=== PATIENT | female | born 1970 | race Caucasian/White ===

== ENCOUNTER 2017-10-11 15:53 | Inpatient (IN) | END 2017-10-17 21:45 | DRG 313 ==

== ENCOUNTER → 2018-11-28 | Emergency (ER) | payer MEDICARE, OTHER ==
[~2018-11-28] VITALS: Ht 160 cm; Wt 75.0 kg
[~2018-11-28] MED LIST: ACET325S GTB; ASC500 GTB; MULTI GTB; NITR0.4T39 SL; OMEP20CA16 PO; PROT946L GTB; [UNRECOGNIZED DRUG - CODE] BOTH EYES
[2018-11-28 08:26] VITALS: BP 117/84; PULSE 73; RESP 16; Ht 160 cm; Wt 75.0 kg
--- NOTE | 2018-11-28 08:38 | ERD ---
ER Documentation Chief Complaint Chief Complaint Tube replacement HPI 48-year-old female referred from her care facility for replacement of a G-tube which was apparently dislodged accidentally earlier today. Patient is nonverbal and provides no further symptoms. No further symptoms were available in the transfer paperwork. ROS All systems reviewed and are negative except as per history of present illness. Medications Home Meds Reported Medications Ascorbic Acid (Vitamin C) 500 Mg Tab, 500 MG GTB DAILY, TAB 10/07/17 Acetaminophen* (Acetaminophen* Susp) 325 Mg/10.15 Ml Solution, 650 MG GTB Q4H PRN for PAIN OR TEMP ABOVE 38C, ML 10/07/17 Protein Supplement (Promod) 946 Ml Liquid, 30 ML GTB DAILY 10/07/17 Omeprazole* (Omeprazole*) 20 Mg Capsule.dr, 20 MG PO AC BREAKFAST, #30 CAP 10/07/17 Nitroglycerin* (Nitrostat*) 0.4 Mg Tab.subl, 0.4 MG SL Q5MIN PRN for CHEST PAIN, BOTTLE 10/07/17 Balanced Salt Soln (Bss) 500 Ml Irrig.soln, 1 DROP BOTH EYES BID 10/07/17 Multivitamins* (Theragran*) 1 Tab Tab, 1 TAB GTB DAILY, TAB 10/07/17 Allergies Allergies: Coded Allergies: No Known Allergy (Unverified , 10/07/17) PMhx/Soc History of Surgery: No Anesthesia Reaction: No Hx Neurological Disorder: No Hx Respiratory Disorders: No Hx Cardiac Disorders: No Hx Psychiatric Problems: No Hx Miscellaneous Medical Probl: No Hx Alcohol Use: No Hx Substance Use: No Hx Tobacco Use: No Physical Exam Physical Exam General: Frail, bed bound, ill appearing HEENT: Mucous membranes dry, sclera nonicteric Neck: No inflammatory changes noted. No JVD. Cardiovascular: Regular rate and rhythm, no murmurs rubs or gallops. Lungs: Transmission of upper airway sounds. Abdomen: Soft with G-tube stoma appreciated. Nontender to palpation. Bowel sounds noted. : Diaper in place and incontinent. Extremities: Atrophic but atraumatic with no edema, cyanosis or clubbing. Neurologic: Baseline organic brain syndrome noted. Gag reflex week. Motor strength diminished in all 4 extremities but otherwise nonfocal. Skin: Skin breakdown noted per nursing note. Procedures/MDM Patient was taken to a room, seen and examined Procedure: G-tube replacement The gastrotomy tube ostomy was cleaned. Using clean procedure, a 16 [place] gastrotomy tube was replaced without obvious trauma. Patient tolerated procedure without difficulty. Medical decision makin-year-old female presents for replacement of a G-tube which was done without complications. Post replacement, the tube was able to be suctioned with gastric contents. This confirmed placement and patient was discharged back with no other evidence of other emergent medical condition by history. Departure Diagnosis: Primary Impression: Encounter for feeding tube placement Condition: Stable Patient Instructions: Feeding Tube Replacement Referrals: SPIKE BANDA MD (PCP) TRAVIS MADRIGAL Nov 28, 2018 08:38
== END | disposition home or self-care (01) ==
LOC: E/R 08:22
DX: K94.23 Gastrostomy malfunction (principal)

== ENCOUNTER 2019-01-02 09:55 | Inpatient (IN) | payer MEDICARE, OTHER ==
[~2019-01-02] VITALS: Ht 160 cm; Wt 63.7 kg
[~2019-01-02 09:55] MED LIST changes: +ACET325T33 PO; +ASPI-903 PO; +DOCU-144 PO; +FAMO20TA18 PO; +MULT-105 PO; +MURO1282 BOTH EYES; +NITR0.4T32 SL; +OLOP5DRO12 BOTH EYES; +PROT946L PO; +TETR15DR63 BOTH EYES
--- NOTE | 2019-01-02 10:54 | ERD ---
ER Documentation Chief Complaint Chief Complaint BIB RA FOR EVAL OF VB THIS AM. PMD VERONIKA HPI 48-year-old woman who is bedbound and quadriplegic status post stroke brought in by EMS from shelter for vaginal bleeding. Family member who is at the bedside states she has had bleeding for about 2 to 3 days. She has had no feve rs or chills, no rectal bleeding, no vomiting or diarrhea. HPI was limited but supplemented by speaking to family member, EMS, reviewing past medical history shelter records. ROS All systems reviewed and are negative except as per history of present illness. Medications Home Meds Reported Medications Acetaminophen* (Tylenol*) 325 Mg Tablet, 650 MG PO Q6H PRN for PAIN LEVEL 1- 10/10, TAB AND FEVER>100.4F 01/02/19 Tetrahydrozoline Hcl* (Visine*) 0.05% - 15 Ml Drops, 1 DROP BOTH EYES Q6H PRN for RED EYES, #1 EA 01/02/19 Protein Supplement (Promod) 946 Ml Liquid, 30 ML PO DAILY 01/02/19 Olopatadine* (Patanol* Ophth) 0.1% - 5 Ml Drops, 1 DROP BOTH EYES TID, EA 01/02/19 Nitroglycerin* (Nitroglycerin* SL) 0.4 Mg Tab.subl, 0.4 MG SL Q5MIN PRN for CHEST PAIN, BOTTLE 01/02/19 Sodium Chloride* (Betty-128*) 2%-15ml Dropper Opht, 1 DROP BOTH EYES QHS, EA 01/02/19 Multivitamin with Minerals (Multivitamins with Minerals) 1 Each Tablet, 1 EACH PO DAILY, TAB 01/02/19 Famotidine* (Famotidine*) 20 Mg Tablet, 20 MG PO DAILY, #30 TAB 01/02/19 Docusate Sodium* (Colace*) 100 Mg Capsule, 100 MG PO BID, #60 CAP 01/02/19 Aspirin* (Aspirin* Chew) 81 Mg Tab.chew, 81 MG PO DAILY, TAB.CHEW 01/02/19 Discontinued Reported Medications Ascorbic Acid (Vitamin C) 500 Mg Tab, 500 MG GTB DAILY, TAB 10/07/17 Acetaminophen* (Acetaminophen* Susp) 325 Mg/10.15 Ml Solution, 650 MG GTB Q4H PRN for PAIN OR TEMP ABOVE 38C, ML 10/07/17 Protein Supplement (Promod) 946 Ml Liquid, 30 ML GTB DAILY 10/07/17 Omeprazole* (Omeprazole*) 20 Mg Capsule.dr, 20 MG PO AC BREAKFAST, #30 CAP 10/07/17 Nitroglycerin* (Nitrostat*) 0.4 Mg Tab.subl, 0.4 MG SL Q5MIN PRN for CHEST PAIN, BOTTLE 10/07/17 Balanced Salt Soln (Bss) 500 Ml Irrig.soln, 1 DROP BOTH EYES BID 10/07/17 Multivitamins* (Theragran*) 1 Tab Tab, 1 TAB GTB DAILY, TAB 10/07/17 Allergies Allergies: Coded Allergies: No Known Allergy (Unverified , 01/02/19) PMhx/Soc Stroke, dysphagia with gastrostomy tube, bedbound, quadriplegic History of Surgery: Yes (gastrostomy ) Anesthesia Reaction: No Hx Neurological Disorder: Yes (EPILEPSY) Hx Respiratory Disorders: No Hx Cardiac Disorders: Yes (htn, HYPERLIPIDEMIA) Hx Psychiatric Problems: No Hx Miscellaneous Medical Probl: Yes (GERD) Hx Alcohol Use: No Hx Substance Use: No Hx Tobacco Use: No FmHx Family History: No diabetes Physical Exam Vitals Vital Signs Date Temp Pulse Resp B/P (MAP) Pulse Ox O2 O2 Flow FiO2 Time Delivery Rate 01/02/19 97.7 61 18 125/72 98 Room Air 12:11 (89) 01/02/19 98.1 67 16 134/70 98 10:07 (91) Physical Exam General: Frail, bed bound, afebrile HEENT: Mucous membranes dry, sclera nonicteric Neck: No inflammatory changes noted. No JVD. Cardiovascular: Regular rate and rhythm, no murmurs rubs or gallops. Lungs: Transmission of upper airway sounds. Abdomen: Soft with G-tube in place. Nontender to palpation. Bowel sounds noted. : Diaper in place and incontinent. Extremities: Atrophic but atraumatic with no edema, cyanosis or clubbing. Neurologic: Baseline organic brain syndrome. Gag reflex week. Motor strength diminished in all 4 extremities but otherwise nonfocal. Skin: Skin breakdown noted per nursing note. Result Diagram: 01/02/19 1124 Results 24 hrs Laboratory Tests Test 01/02/19 11:24 White Blood Count 4.4 10^3/ul Red Blood Count 4.66 10^6/ul Hemoglobin 14.3 g/dl Hematocrit 42.7 % Mean Corpuscular Volume 91.6 fl Mean Corpuscular Hemoglobin 30.7 pg Mean Corpuscular Hemoglobin Concent 33.5 g/dl Red Cell Distribution Width 13.0 % Platelet Count 198 10^3/UL Mean Platelet Volume 10.1 fl Immature Granulocytes % 0.000 % Neutrophils % 48.1 % Lymphocytes % 39.9 % Monocytes % 8.6 % Eosinophils % 2.9 % Basophils % 0.5 % Nucleated Red Blood Cells % 0.0 /100WBC Immature Granulocytes # 0.000 10^3/ul Neutrophils # 2.1 10^3/ul Lymphocytes # 1.8 10^3/ul Monocytes # 0.4 10^3/ul Eosinophils # 0.1 10^3/ul Basophils # 0.0 10^3/ul Nucleated Red Blood Cells # 0.0 10^3/ul Prothrombin Time 12.9 Sec Prothrombin Time Ratio 1.0 INR International Normalized Ratio 0.96 Activated Partial Thromboplast Time 27.0 Sec Urine Color YELLOW Urine Clarity SLIGHTLY CLOUDY Urine pH 7.0 Urine Specific [place] 1.014 Urine Ketones NEGATIVE mg/dL Urine Nitrite POSITIVE mg/dL Urine Bilirubin NEGATIVE mg/dL Urine Urobilinogen 2+ mg/dL Urine Leukocyte Esterase NEGATIVE Radha/ul Urine Microscopic RBC 2 /HPF Urine Microscopic WBC 3 /HPF Urine Bacteria FEW /HPF Urine Mucus FEW /HPF Urine Hemoglobin NEGATIVE mg/dL Urine Glucose NEGATIVE mg/dL Urine Total Protein NEGATIVE mg/dl Current Medications Medications Dose Sig/Radha Start Time Status Last (Trade) Ordered Route PRN Stop Time Admin Dose Reason Admin Sodium 500 ml @ Q1H STAT 01/02/19 DC 01/02/19 Chloride 500 mls/hr IV 11:00 12:08 01/02/19 11:59 Cefepime HCl 50 ml @ ONCE ONCE 01/02/19 01/02/19 100 mls/hr IVPB 12:30 12:10 01/02/19 12:59 Procedures/MDM IV line was established patient was placed on shelter monitor rhythm strip revealed a sinus rhythm at about 80 bpm with upright P and T waves. Patient was afebrile I administered 1 L normal saline IV. Urinalysis revealed nitrites and microscopic blood with elevated urine WBCs, administered cefepime 1 g IV x1. CBC was unremarkable. Electrolytes pending. Pelvic nonobstetric ultrasound has been ordered results are pending I will follow-up I spoke to the patient's PMD regarding her presentation and symptomatology who recommended inpatient management with ANIMAL ASSISTANT consultation. Departure Diagnosis: Primary Impression: Vaginal bleeding Additional Impressions: Functional quadriplegia Acute dehydration Condition: JULIETTE Arizmendi MD January 02, 2019 10:54
[2019-01-02] MEDS ORDERED: SOD CHLORIDE 0.9% 500 ML IV STA (11:00)
[2019-01-02] MEDS ORDERED: CEFEPIME 1GM/50 ML (PMX) 50 ML IVPB ONE (12:30)
[2019-01-02] MEDS ORDERED: morphine 2 MG INJ IV STA (15:22)
[2019-01-02] MEDS ORDERED: ONDANSETRON 4 MG INJ IV STA (15:22)
--- NOTE | 2019-01-02 16:49 | HP ---
Date/Time of Note Date/Time of Note DATE: 01/02/19 TIME: 16:36 Assessment/Plan VTE Prophylaxis SCD applied (from Nsg): Yes Pharmacological prophylaxis: NA/contraindicated Pharm contraindication: bleeding Lines/Catheters IV Catheter Type (from Nrsg): Saline Lock Urinary Cath still in place: Yes Reason Cath still needed: urinary retention Assessment/Plan Hospital Course -Vaginal bleeding, will obtain vaginal ultrasound, continue to monitor hemoglobin and hematocrit, SYNTHETIC DEPARTMENT SUPERVISOR eval. 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 -Dysphagia with G-tube -Bedbound status Further recommendations based on clinical course. Plan of care discussed with Dr. Dominique. Result Diagram: 01/02/19 1124 01/02/19 1245 Results 24hrs Laboratory Tests Test 01/02/19 11:24 01/02/19 12:45 White Blood Count 4.4 L Red Blood Count 4.66 Hemoglobin 14.3 Hematocrit 42.7 Mean Corpuscular Volume 91.6 Mean Corpuscular Hemoglobin 30.7 Mean Corpuscular Hemoglobin Concent 33.5 Red Cell Distribution Width 13.0 Platelet Count 198 Mean Platelet Volume 10.1 Immature Granulocytes % 0.000 L Neutrophils % 48.1 Lymphocytes % 39.9 Monocytes % 8.6 Eosinophils % 2.9 Basophils % 0.5 Nucleated Red Blood Cells % 0.0 Immature Granulocytes # 0.000 Neutrophils # 2.1 Lymphocytes # 1.8 Monocytes # 0.4 Eosinophils # 0.1 Basophils # 0.0 Nucleated Red Blood Cells # 0.0 Prothrombin Time 12.9 Prothrombin Time Ratio 1.0 INR International Normalized Ratio 0.96 Activated Partial Thromboplast Time 27.0 Urine Color YELLOW Urine Clarity SLIGHTLY CLOUDY A Urine pH 7.0 Urine Specific [place] 1.014 Urine Ketones NEGATIVE Urine Nitrite POSITIVE A Urine Bilirubin NEGATIVE Urine Urobilinogen 2+ H Urine Leukocyte Esterase NEGATIVE Urine Microscopic RBC 2 Urine Microscopic WBC 3 Urine Bacteria FEW A Urine Mucus FEW A Urine Hemoglobin NEGATIVE Urine Glucose NEGATIVE Urine Total Protein NEGATIVE Sodium Level 141 Potassium Level 4.2 Chloride Level 109 Carbon Dioxide Level 25 Anion Gap 7 Blood Urea Nitrogen 9 Creatinine 0.50 Est Glomerular Filtrat Rate mL/min > 60 Glucose Level 98 Calcium Level 9.3 Total Bilirubin 0.5 Direct Bilirubin 0.00 Indirect Bilirubin 0.5 Aspartate Amino Transf (AST/SGOT) 32 Alanine Aminotransferase (ALT/SGPT) 35 Alkaline Phosphatase 102 Total Protein 7.2 Albumin 3.8 Globulin 3.40 H Albumin/Globulin Ratio 1.11 Lipase 40 HPI/ROS Admit Date/Time Admit Date/Time Hx of Present Illness The patient is a 48-year-old female with history of intracerebral hemorrhage with aneurysmal rupture 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 Patient is a bedbound and being fed via G-tube. Patient was sent from long term facility for vaginal bleeding. Patient is unable to provide any history and most of the history was obtained from medical records and talking to patient's daughter at the bedside. According to patient's daughter patient stop having period 2 years ago. Patient will undergo vaginal ultrasound and evaluation by SYNTHETIC DEPARTMENT SUPERVISOR. No fever nausea vomiting diarrhea were reported. Patient complains of the right eye pain. PMH/Family/Social Past Medical History Medical History: hypertension, other ( history of lupus) Coded Allergies: No Known Allergy (Unverified , 01/02/19) Past Surgical History Past Surgical Hx: other (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) Family History Significant Family History: no pertinent family hx Social History Patient is a resident of a long term facility, currently do not smoke drink or use any drugs Alcohol Use: none Drug Use: other (History of amphetamine use in the past) Exam/Review of Systems Vital Signs Vitals Vital Signs Date Temp Pulse Resp B/P (MAP) Pulse Ox O2 O2 Flow FiO2 Time Delivery Rate 01/02/19 97.9 61 14 122/69 96 Room Air 16:13 (86) Exam Constitutional: alert, non-verbal Head: normocephalic Eyes: PERRL Neck: supple Respiratory: clear to auscultation Cardiovascular: regular rate and rhythm Gastrointestinal: soft, other (G-tube) Extremities: normal pulses, other (Contracted bilateral lower extremities) Neurological: other (Awake, alert, contracted bilateral lower extremities, right-sided weakness) Skin: KELSEY Kirkpatrick January 02, 2019 16:46
[2019-01-02 17:10] VITALS: Ht 160 cm; Wt 63.7 kg
[2019-01-02 17:20] VITALS: BP 131/68; PULSE 88; RESP 19
[2019-01-02] MEDS ORDERED: ONDANSETRON 4 MG INJ IV PRN (17:30)
[2019-01-02] MEDS ORDERED: ACETAMINOPHEN 325 MG TAB PO PRN (17:30)
[2019-01-02] MEDS ORDERED: HYDROCODONE/APAP (5/325) TAB PO PRN (17:30)
[2019-01-02] MEDS ORDERED: DOCUSATE SODIUM 100 MG CAP PO PRN (17:30)
[2019-01-02] MEDS ORDERED: MAGNESIUM HYDROXIDE 30ML CUP PO PRN (17:30)
[2019-01-02 19:20] VITALS: BP 102/62; PULSE 50; RESP 16
[2019-01-02] MEDS: DEXTROSE 5%-0.45% NACL 1,000 ML IV SCH (20:05)
[2019-01-02] MEDS: SODIUM CHLORIDE 5% 15ML OPH BOTH EYES SCH (21:00)
[2019-01-02] MEDS ORDERED: SODIUM CHLORIDE 2% OPH 15 ML BTL BOTH EYES SCH (21:00)
[2019-01-02] MEDS: DOCUSATE SODIUM 100 MG CAP PO SCH (21:00)
[2019-01-03 02:20] VITALS: BP 130/71; PULSE 86; RESP 18
[2019-01-03 07:38] VITALS: BP 106/68; PULSE 63; RESP 18
[2019-01-03] MEDS: FAMOTIDINE 20 MG TAB PO SCH (09:00)
[2019-01-03] MEDS: DOCUSATE SODIUM 100 MG CAP PO SCH ×2 (09:00→21:49)
[2019-01-03] MEDS: DEXTROSE 5%-0.45% NACL 1,000 ML IV SCH ×2 (09:27→22:10)
[2019-01-03] MEDS: TETRAHYDROZOLINE 0.05% 15 ML OPH BOTH EYES PRN ×2 (09:29→16:14)
[2019-01-03 14:25] VITALS: BP 108/66; PULSE 76; RESP 18
--- NOTE | 2019-01-03 15:22 | PN ---
Date/Time of Note Date/Time of Note DATE: 01/03/19 TIME: 15:10 Assessment/Plan VTE Prophylaxis Risk score (from Ns)>0 risk: 2 SCD applied (from Ns): Yes Pharmacological prophylaxis: NA/contraindicated Pharm contraindication: bleeding Lines/Catheters [facility] Peripheral IV Urinary Cath still in place: Yes Reason Cath still needed: urinary retention Assessment/Plan Hospital Course Patient continues to have small amount of vaginal bleeding, status post evaluation by speech, start pured diet, CT of the abdomen and pelvis noted. Assessment/Plan -Vaginal bleeding, Dr Nath is asked to see pt in BIOPROCESS DEVELOPMENT ENGINEER eval. monitor H&H. -Severe constipation with concern for stroke or pleural colitis and gallbladder distention with dilated common bile duct per CT of the abdomen and pelvis. Start patient on bowel regimen. Dr. Devi is asked to see patient in gastroenterology consultation. -Gram-negative rods UTI, start Rocephin. 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 -Dysphagia with G-tube -Bedbound status Further recommendations based on clinical course. Plan of care discussed with Dr. Dominique. Result Diagram: 01/03/19 0434 01/03/19 0434 Results 24hrs Laboratory Tests Test 01/03/19 04:34 White Blood Count 4.4 L Red Blood Count 4.36 Hemoglobin 13.2 Hematocrit 39.4 Mean Corpuscular Volume 90.4 Mean Corpuscular Hemoglobin 30.3 Mean Corpuscular Hemoglobin Concent 33.5 Red Cell Distribution Width 12.9 Platelet Count 190 Mean Platelet Volume 10.2 Immature Granulocytes % 0.200 Neutrophils % 49.7 Lymphocytes % 37.4 Monocytes % 9.9 Eosinophils % 2.3 Basophils % 0.5 Nucleated Red Blood Cells % 0.0 Immature Granulocytes # 0.010 Neutrophils # 2.2 Lymphocytes # 1.6 Monocytes # 0.4 Eosinophils # 0.1 Basophils # 0.0 Nucleated Red Blood Cells # 0.0 Sodium Level 141 Potassium Level 4.3 Chloride Level 111 H Carbon Dioxide Level 25 Anion Gap 5 Blood Urea Nitrogen 6 L Creatinine 0.54 Est Glomerular Filtrat Rate mL/min > 60 Glucose Level 116 Calcium Level 8.8 Magnesium Level 2.0 Exam/Review of Systems Exam Vitals Vital Signs Date Temp Pulse Resp B/P (MAP) Pulse Ox O2 O2 Flow FiO2 Time Delivery Rate 01/03/19 98.2 63 18 106/68 97 Room Air 07:38 (81) Intake and Output 01/02/19 01/02/19 01/03/19 1414:59 22:59 06:59 IntakeIntake Total 550 ml 650 ml OutputOutput Total 1000 ml BalanceBalance 550 ml -350 ml Exam Constitutional: alert, non-verbal Respiratory: clear to auscultation Cardiovascular: regular rate and rhythm Gastrointestinal: soft, other (G-tube) Extremities: normal pulses, other (Contracted bilateral lower extremities) Neurological: other (Awake, alert, contracted bilateral lower extremities, right-sided weakness) Skin: nl turgor Results Results 24hrs Laboratory Tests Test 01/03/19 04:34 White Blood Count 4.4 L Red Blood Count 4.36 Hemoglobin 13.2 Hematocrit 39.4 Mean Corpuscular Volume 90.4 Mean Corpuscular Hemoglobin 30.3 Mean Corpuscular Hemoglobin Concent 33.5 Red Cell Distribution Width 12.9 Platelet Count 190 Mean Platelet Volume 10.2 Immature Granulocytes % 0.200 Neutrophils % 49.7 Lymphocytes % 37.4 Monocytes % 9.9 Eosinophils % 2.3 Basophils % 0.5 Nucleated Red Blood Cells % 0.0 Immature Granulocytes # 0.010 Neutrophils # 2.2 Lymphocytes # 1.6 Monocytes # 0.4 Eosinophils # 0.1 Basophils # 0.0 Nucleated Red Blood Cells # 0.0 Sodium Level 141 Potassium Level 4.3 Chloride Level 111 H Carbon Dioxide Level 25 Anion Gap 5 Blood Urea Nitrogen 6 L Creatinine 0.54 Est Glomerular Filtrat Rate mL/min > 60 Glucose Level 116 Calcium Level 8.8 Magnesium Level 2.0 Medications Medication Current Medications Acetaminophen (Tylenol Tab) 650 mg Q6H PRN PO PAIN LEVEL 1-10/10; Start 01/02/19 at 17:30 Docusate Sodium (Colace) 100 mg BID PO ; Start 01/02/19 at 21:00 Famotidine (Pepcid) 20 mg DAILY PO ; Start 01/03/19 at 09:00 Tetrahydrozoline HCl (Geneyes Oph) 1 drop Q6H PRN BOTH EYES RED EYES Last administered on 01/03/19at 09:29; Admin Dose 1 DROP; Start 01/02/19 at 17:30 Ondansetron HCl (Zofran Inj) 4 mg Q6H PRN IV NAUSEA/VOMITING; Start 01/02/19 at 17:30 Acetaminophen/ Hydrocodone Bitart ([place] (5/325)) 1 tab Q6H PRN PO .MOD PAIN 4- 6; Start 01/02/19 at 17:30 Docusate Sodium (Colace) 100 mg Q12H PRN PO .CONSTIPATION; Start 01/02/19 at 17:30 Magnesium Hydroxide (Milk Of Mag) 30 ml DAILY PRN PO .CONSTIPATION; Start 01/02/19 at 17:30 Sodium Chloride (Betty-128 5%) 1 drop QHS BOTH EYES ; Start 01/02/19 at 21:00 Dextrose/Sodium Chloride 1,000 ml @ 75 mls/hr [id number] IV Last administered on 01/03/19at 09:27; Admin Dose 75 MLS/HR; Start 01/02/19 at 19:30 KELSEY PROCTOR January 03, 2019 15:21
[2019-01-03] MEDS ORDERED: CEFTRIAXONE 1 GM/50 ML (PMX) 50 ML IVPB SCH (15:30)
[2019-01-03] MEDS ORDERED: MAGNESIUM CITRATE 300 ML BTL GTB ONE (18:30)
[2019-01-03 20:27] VITALS: BP 125/69; PULSE 77; RESP 20
[2019-01-03] MEDS: SODIUM CHLORIDE 5% 15ML OPH BOTH EYES SCH (21:01)
--- NOTE | 2019-01-03 21:22 | CONS ---
DATE OF ADMISSION: 01/02/2019 DATE OF CONSULTATION: From Dr. Montrell Devi to Dr. Spike Banda. HISTORY OF PRESENT ILLNESS: A 48-year-old female who is a quadriplegic, bedbound, was brought to the emergency room for vaginal bleeding. This has been going on for the last 2 to 3 days, not much info rmation could be obtained from the patient because of her mental status. All the information gathere d by reviewing the electronic medical record. REVIEW OF SYSTEMS: Nothing additional than what has been described in the history of present illness . HOME MEDICATIONS: Reviewed. The patient is on: 1. Eyedrops. 2. Famotidine 3. Colace. 4. Nitrostat. ALLERGIES: NONE. PAST MEDICAL HISTORY: G-tube, history of epilepsy, hyperlipidemia and GERD. The patient had a histo ry of stroke. PHYSICAL EXAMINATION: GENERAL: Awake, alert and trying to remove IV line. CARDIOVASCULAR: No murmur, gallop or click. ABDOMEN: Benign. G-tube is in place. LUNGS: Clear. EXTREMITIES: Atrophic. No edema. CENTRAL NERVOUS SYSTEM: Neurologically confused. Moves all the extremities. LABORATORY DATA: LFTs all within normal limits. BNP is normal. CBC is normal and stable. INR was within normal limits. IMAGING STUDY: CAT scan of the abdomen and pelvis shows a leiomyomatous changes in the uterus. Gall bladder was distended and bile duct was dilated up to 1 cm. There was a fecal impaction, probably wi th stercoral ulcer. IMPRESSION: 1. Dilated gallbladder and bile duct with normal LFT, rule out bile duct stone. Rule out biliary st ricture, rule out ampullary pathology. 2. Fecal impaction with probable stercoral ulcer. 3. Vaginal bleeding from leiomyomatous uterus. 4. Quadriplegia. 5. Cerebrovascular accident. 6. Hyperlipidemia. 7. Dysphagia, status post G-tube placement. PLAN: At this point is to get MRCP to evaluate the biliary system properly. If MRCP is negative for any stone, then we will manage conservatively; however, if it is positive for any biliary stricture or the stone, then the patient will need ERCP. Dictated By: MONTRELL COHEN/CLARE Conf#: [id number] DID#: [id number] CC: SPIKE BANDA MD; MONTRELL DEVI MD;*EndCC*
[2019-01-04 01:41] VITALS: BP 128/60; PULSE 60; RESP 18
[2019-01-04] MEDS: DEXTROSE 5%-0.45% NACL 1,000 ML IV SCH ×3 (06:26→20:46)
--- NOTE | 2019-01-04 08:57 | CONS ---
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 patient is currently not having vaginal bleeding according to nurse who is taking care of this patient. u/s endovaginal revealed no adequate view in endometrium, no ovaries, small uterus which is heterogenous. blodd count 13.9/41.4 at present no recommandation except f/u u/s and possible endometrial biopsy when her physical condition improves vaginal spotting Subjective hx not possible: pt non-verbal Constitutional: no complaints, improved, disoriented Eyes: no complaints ENT: no complaints Respiratory: no complaints Cardiovascular: no complaints Gastrointestinal: no complaints Genitourinary: no complaints Musculoskeletal: no complaints Skin: no complaints Neurologic: no complaints Endocrine: no complaints Lymphatic: no complaints Psychological: no complaints, nl mood/affect Immunologic: no complaints Past Medical History Medical History: hypertension, other ( history of lupus) Home Meds Reported Medications Acetaminophen* (Tylenol*) 325 Mg Tablet, 650 MG PO Q6H PRN for PAIN LEVEL 1- 10/10, TAB AND FEVER>100.4F 01/02/19 Tetrahydrozoline Hcl* (Visine*) 0.05% - 15 Ml Drops, 1 DROP BOTH EYES Q6H PRN for RED EYES, #1 EA 01/02/19 Protein Supplement (Promod) 946 Ml Liquid, 30 ML PO DAILY 01/02/19 Olopatadine* (Patanol* Ophth) 0.1% - 5 Ml Drops, 1 DROP BOTH EYES TID, EA 01/02/19 Nitroglycerin* (Nitroglycerin* SL) 0.4 Mg Tab.subl, 0.4 MG SL Q5MIN PRN for CHEST PAIN, BOTTLE 01/02/19 Sodium Chloride* (Betty-128*) 2%-15ml Dropper Opht, 1 DROP BOTH EYES QHS, EA 01/02/19 Multivitamin with Minerals (Multivitamins with Minerals) 1 Each Tablet, 1 EACH PO DAILY, TAB 01/02/19 Famotidine* (Famotidine*) 20 Mg Tablet, 20 MG PO DAILY, #30 TAB 01/02/19 Docusate Sodium* (Colace*) 100 Mg Capsule, 100 MG PO BID, #60 CAP 01/02/19 Aspirin* (Aspirin* Chew) 81 Mg Tab.chew, 81 MG PO DAILY, TAB.CHEW 01/02/19 Discontinued Reported Medications Ascorbic Acid (Vitamin C) 500 Mg Tab, 500 MG GTB DAILY, TAB 10/07/17 Acetaminophen* (Acetaminophen* Susp) 325 Mg/10.15 Ml Solution, 650 MG GTB Q4H PRN for PAIN OR TEMP ABOVE 38C, ML 10/07/17 Protein Supplement (Promod) 946 Ml Liquid, 30 ML GTB DAILY 10/07/17 Omeprazole* (Omeprazole*) 20 Mg Capsule.dr, 20 MG PO AC BREAKFAST, #30 CAP 10/07/17 Nitroglycerin* (Nitrostat*) 0.4 Mg Tab.subl, 0.4 MG SL Q5MIN PRN for CHEST PAIN, BOTTLE 10/07/17 Balanced Salt Soln (Bss) 500 Ml Irrig.soln, 1 DROP BOTH EYES BID 10/07/17 Multivitamins* (Theragran*) 1 Tab Tab, 1 TAB GTB DAILY, TAB 10/07/17 Medications Current Medications Acetaminophen (Tylenol Tab) 650 mg Q6H PRN PO PAIN LEVEL 1-10/10; Start 01/02/19 at 17:30 Docusate Sodium (Colace) 100 mg BID PO Last administered on 01/03/19at 21:49; Admin Dose 100 MG; Start 01/02/19 at 21:00 Famotidine (Pepcid) 20 mg DAILY PO ; Start 01/03/19 at 09:00 Tetrahydrozoline HCl (Geneyes Oph) 1 drop Q6H PRN BOTH EYES RED EYES Last administered on 01/03/19at 16:14; Admin Dose 1 DROP; Start 01/02/19 at 17:30 Ondansetron HCl (Zofran Inj) 4 mg Q6H PRN IV NAUSEA/VOMITING; Start 01/02/19 at 17:30 Acetaminophen/ Hydrocodone Bitart ([place] (5/325)) 1 tab Q6H PRN PO .MOD PAIN 4- 6; Start 01/02/19 at 17:30 Docusate Sodium (Colace) 100 mg Q12H PRN PO .CONSTIPATION; Start 01/02/19 at 17:30 Magnesium Hydroxide (Milk Of Mag) 30 ml DAILY PRN PO .CONSTIPATION Last administered on 01/04/19at 02:31; Admin Dose 30 ML; Start 01/02/19 at 17:30 Sodium Chloride (Betty-128 5%) 1 drop QHS BOTH EYES Last administered on 01/03/19at 21:01; Admin Dose 1 DROP; Start 01/02/19 at 21:00 Dextrose/Sodium Chloride 1,000 ml @ 75 mls/hr [id number] IV Last administered on 01/04/19at 06:26; Admin Dose 75 MLS/HR; Start 01/02/19 at 19:30 Ceftriaxone Sodium 50 ml @ 100 mls/hr Q24H IVPB Last administered on 01/03/19at 16:13; Admin Dose 100 MLS/HR; Start 01/03/19 at 15:30 Allergies: Coded Allergies: No Known Allergy (Unverified , 01/02/19) Past Surgical History Past Surgical Hx: other (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) Social History Alcohol Use: none Smoking Status: Former smoker Drug Use: other (History of amphetamine use in the past) Exam/Review of Systems Exam Vitals Vital Signs Date Temp Pulse Resp B/P (MAP) Pulse Ox O2 O2 Flow FiO2 Time Delivery Rate 01/04/19 98.0 60 18 128/60 95 Room Air 01:41 (82) Intake and Output 01/03/19 01/03/19 01/04/19 1414:59 22:59 06:59 IntakeIntake Total 350 ml 1500 ml 450 ml OutputOutput Total 1000 ml BalanceBalance 350 ml 500 ml 450 ml Results Result Diagram: 01/04/19 0432 01/04/19 0432 Results 24hrs Laboratory Tests Test 01/04/19 04:32 White Blood Count 4.8 Red Blood Count 4.60 Hemoglobin 13.9 Hematocrit 41.4 Mean Corpuscular Volume 90.0 Mean Corpuscular Hemoglobin 30.2 Mean Corpuscular Hemoglobin Concent 33.6 Red Cell Distribution Width 12.7 Platelet Count 200 Mean Platelet Volume 10.0 Immature Granulocytes % 0.200 Neutrophils % 61.6 Lymphocytes % 26.5 Monocytes % 9.0 Eosinophils % 2.1 Basophils % 0.6 Nucleated Red Blood Cells % 0.0 Immature Granulocytes # 0.010 Neutrophils # 3.0 Lymphocytes # 1.3 Monocytes # 0.4 Eosinophils # 0.1 Basophils # 0.0 Nucleated Red Blood Cells # 0.0 Sodium Level 140 Potassium Level 4.4 Chloride Level 108 Carbon Dioxide Level 24 Anion Gap 8 Blood Urea Nitrogen 5 L Creatinine 0.49 Est Glomerular Filtrat Rate mL/min > 60 Glucose Level 127 Calcium Level 9.1 Medications Medication Current Medications Acetaminophen (Tylenol Tab) 650 mg Q6H PRN PO PAIN LEVEL 1-10/10; Start 01/02/19 at 17:30 Docusate Sodium (Colace) 100 mg BID PO Last administered on 01/03/19at 21:49; Admin Dose 100 MG; Start 01/02/19 at 21:00 Famotidine (Pepcid) 20 mg DAILY PO ; Start 01/03/19 at 09:00 Tetrahydrozoline HCl (Geneyes Oph) 1 drop Q6H PRN BOTH EYES RED EYES Last administered on 01/03/19at 16:14; Admin Dose 1 DROP; Start 01/02/19 at 17:30 Ondansetron HCl (Zofran Inj) 4 mg Q6H PRN IV NAUSEA/VOMITING; Start 01/02/19 at 17:30 Acetaminophen/ Hydrocodone Bitart ([place] (5/325)) 1 tab Q6H PRN PO .MOD PAIN 4- 6; Start 01/02/19 at 17:30 Docusate Sodium (Colace) 100 mg Q12H PRN PO .CONSTIPATION; Start 01/02/19 at 17:30 Magnesium Hydroxide (Milk Of Mag) 30 ml DAILY PRN PO .CONSTIPATION Last administered on 01/04/19at 02:31; Admin Dose 30 ML; Start 01/02/19 at 17:30 Sodium Chloride (Betty-128 5%) 1 drop QHS BOTH EYES Last administered on 01/03/19at 21:01; Admin Dose 1 DROP; Start 01/02/19 at 21:00 Dextrose/Sodium Chloride 1,000 ml @ 75 mls/hr [id number] IV Last administered on 01/04/19at 06:26; Admin Dose 75 MLS/HR; Start 01/02/19 at 19:30 Ceftriaxone Sodium 50 ml @ 100 mls/hr Q24H IVPB Last administered on 01/03/19at 16:13; Admin Dose 100 MLS/HR; Start 01/03/19 at 15:30 MERLYN PAULINO MD January 04, 2019 08:55
[2019-01-04 09:05] VITALS: BP 107/66; PULSE 72; RESP 19
[2019-01-04] MEDS: DOCUSATE SODIUM 100 MG CAP PO SCH ×2 (09:06→20:44)
[2019-01-04] MEDS: CEFEPIME 1GM/50 ML (PMX) 50 ML IVPB SCH ×2 (09:06→20:44)
[2019-01-04] MEDS: FAMOTIDINE 20 MG TAB PO SCH (09:06)
[2019-01-04 09:18] VITALS: BP 107/66; PULSE 72; RESP 18
--- NOTE | 2019-01-04 09:24 | PN ---
Date/Time of Note Date/Time of Note DATE: 01/04/19 TIME: 09:19 Assessment/Plan VTE Prophylaxis [place] [facility] [place]: 3 [place] applied [place] [facility] [place] SCD contraindicated: other Pharmacological prophylaxis: other Pharm contraindication: other Lines/Catheters IV Catheter Type (from [facility]): Peripheral IV Urinary Cath still in place: Yes Reason Cath still needed: urinary retention Assessment/Plan Assessment/Plan - ESBL urine - contact isolation - started on cefepime -Vaginal bleeding, Dr Nath is asked to see pt in NURSE ADMINISTRATOR eval. monitor H&H. -Severe constipation with concern for stroke or pleural colitis and gallbladder distention with dilated common bile duct per CT of the abdomen and pelvis. Start patient on bowel regimen. Dr. Devi is asked to see patient in gastroenterology consultation. -Gram-negative rods UTI, start Rocephin. 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 -Dysphagia with G-tube -Bedbound status Further recommendations based on clinical course. Plan of care discussed with Dr. Dominique. Result Diagram: 01/04/19 0432 01/04/19 0432 Results 24hrs Laboratory Tests Test 01/04/19 04:32 White Blood Count 4.8 Red Blood Count 4.60 Hemoglobin 13.9 Hematocrit 41.4 Mean Corpuscular Volume 90.0 Mean Corpuscular Hemoglobin 30.2 Mean Corpuscular Hemoglobin Concent 33.6 Red Cell Distribution Width 12.7 Platelet Count 200 Mean Platelet Volume 10.0 Immature Granulocytes % 0.200 Neutrophils % 61.6 Lymphocytes % 26.5 Monocytes % 9.0 Eosinophils % 2.1 Basophils % 0.6 Nucleated Red Blood Cells % 0.0 Immature Granulocytes # 0.010 Neutrophils # 3.0 Lymphocytes # 1.3 Monocytes # 0.4 Eosinophils # 0.1 Basophils # 0.0 Nucleated Red Blood Cells # 0.0 Sodium Level 140 Potassium Level 4.4 Chloride Level 108 Carbon Dioxide Level 24 Anion Gap 8 Blood Urea Nitrogen 5 L Creatinine 0.49 Est Glomerular Filtrat Rate mL/min > 60 Glucose Level 127 Calcium Level 9.1 Subjective 24 Hr Interval Summary Free Text/Dictation - nad - no vaginal bleeding reported - ESBL urine; contact isolation; started on cefepime dw staff Respiratory: no complaints Exam/Review of Systems Exam Vitals Vital Signs Date Temp Pulse Resp B/P (MAP) Pulse Ox O2 O2 Flow FiO2 Time Delivery Rate 01/04/19 98.8 72 19 107/66 97 Room Air 09:05 (80) Intake and Output 01/03/19 01/03/19 01/04/19 1414:59 22:59 06:59 IntakeIntake Total 350 ml 1500 ml 450 ml OutputOutput Total 1000 ml BalanceBalance 350 ml 500 ml 450 ml Constitutional: alert, well developed Psych: nl mood/affect Head: normocephalic Eyes: nl lids, nl sclera ENMT: nl external ears & nose Neck: non-tender Respiratory: clear to auscultation Cardiovascular: nl pulses, other (s1s2) Gastrointestinal: soft, non-tender Musculoskeletal: muscle weakness, other (LUE; BLE contractures) Extremities: normal pulses Neurological: confused, focal weakness (right sided weakness), other Skin: nl turgor Lymph: nontender Results Results 24hrs Laboratory Tests Test 01/04/19 04:32 White Blood Count 4.8 Red Blood Count 4.60 Hemoglobin 13.9 Hematocrit 41.4 Mean Corpuscular Volume 90.0 Mean Corpuscular Hemoglobin 30.2 Mean Corpuscular Hemoglobin Concent 33.6 Red Cell Distribution Width 12.7 Platelet Count 200 Mean Platelet Volume 10.0 Immature Granulocytes % 0.200 Neutrophils % 61.6 Lymphocytes % 26.5 Monocytes % 9.0 Eosinophils % 2.1 Basophils % 0.6 Nucleated Red Blood Cells % 0.0 Immature Granulocytes # 0.010 Neutrophils # 3.0 Lymphocytes # 1.3 Monocytes # 0.4 Eosinophils # 0.1 Basophils # 0.0 Nucleated Red Blood Cells # 0.0 Sodium Level 140 Potassium Level 4.4 Chloride Level 108 Carbon Dioxide Level 24 Anion Gap 8 Blood Urea Nitrogen 5 L Creatinine 0.49 Est Glomerular Filtrat Rate mL/min > 60 Glucose Level 127 Calcium Level 9.1 Medications Medication Current Medications Acetaminophen (Tylenol Tab) 650 mg Q6H PRN PO PAIN LEVEL 1-10/10; Start 01/02/19 at 17:30 Docusate Sodium (Colace) 100 mg BID PO Last administered on 01/04/19at 09:06; Admin Dose 100 MG; Start 5/15/19 at 21:00 Famotidine (Pepcid) 20 mg DAILY PO Last administered on 01/04/19 09:06; Admin Dose 20 MG; Start 01/03/19 at 09:00 Tetrahydrozoline HCl (Geneyes Oph) 1 drop Q6H PRN BOTH EYES RED EYES Last administered on 01/03/19 16:14; Admin Dose 1 DROP; Start 01/02/19 at 17:30 Ondansetron HCl (Zofran Inj) 4 mg Q6H PRN IV NAUSEA/VOMITING; Start 01/02/19 at 17:30 Acetaminophen/ Hydrocodone Bitart ([place] (5/325)) 1 tab Q6H PRN PO .MOD PAIN 4- 6; Start 01/02/19 at 17:30 Docusate Sodium (Colace) 100 mg Q12H PRN PO .CONSTIPATION; Start 01/02/19 at 17:30 Magnesium Hydroxide (Milk Of Mag) 30 ml DAILY PRN PO .CONSTIPATION Last administered on 01/04/19 02:31; Admin Dose 30 ML; Start 01/02/19 at 17:30 Sodium Chloride (Betty-128 5%) 1 drop QHS BOTH EYES Last administered on 01/03/19 21:01; Admin Dose 1 DROP; Start 01/02/19 at 21:00 Dextrose/Sodium Chloride 1,000 ml @ 75 mls/hr [id number] IV Last administered on 01/04/19 06:26; Admin Dose 75 MLS/HR; Start 01/02/19 at 19:30 Cefepime HCl 50 ml @ 100 mls/hr Q12 IVPB Last administered on 01/04/19 09:06; Admin Dose 100 MLS/HR; Start 01/04/19 at 09:00 VALENCIA PEREZ January 04, 2019 09:24
--- NOTE | 2019-01-04 12:19 | CONS ---
Assessment/Plan Assessment/Plan Assessment/Plan (Daily) IMPRESSION: 1. Dilated gallbladder and bile duct with normal LFT, rule out bile duct stone. Rule out biliary stricture, rule out ampullary pathology. 2. Fecal impaction with probable stercoral ulcer. 3. Vaginal bleeding from leiomyomatous uterus. 4. Quadriplegia. 5. Cerebrovascular accident. 6. Hyperlipidemia. 7. Dysphagia, status post G-tube placement. Plan MRCP is negative for biliary obstruction or stricture. Bile duct is 3 mm in diameter. Continue present care Consultation Date/Type/Reason Admit Date/Time January 02, 2019 at 12:45 Initial Consult Date 01/04/19 Requesting Provider: KELSEY PROCTOR Date/Time of Note DATE: 01/04/19 TIME: 12: 24 HR Interval Summary Constitutional: no complaints, improved Exam/Review of Systems Exam Vitals Vital Signs Date Temp Pulse Resp B/P (MAP) Pulse Ox O2 O2 Flow FiO2 Time Delivery Rate 01/04/19 98.4 72 18 107/66 99 09:18 (80) 01/04/19 Room Air 09:05 Intake and Output 01/03/19 01/03/19 01/04/19 1515:00 23:00 07:00 IntakeIntake Total 350 ml 1500 ml 450 ml OutputOutput Total 1000 ml BalanceBalance 350 ml 500 ml 450 ml Constitutional: alert, oriented, well developed Psych: no complaints, nl mood/affect Head: normocephalic, atraumatic Eyes: nl conjunctiva, EOMI, nl lids, nl sclera, PERRL ENMT: nl external ears & nose, nl lips & teeth, nl nasal mucosa & septum Neck: supple, non-tender Respiratory: clear to auscultation, normal air movement Cardiovascular: regular rate and rhythm, nl pulses Gastrointestinal: soft, nl liver, spleen, non-tender Musculoskeletal: nl extremities to inspection, nl gait and stance Extremities: normal pulses Neurological: GIFT CONSULTANT II-XII intact, nl mental status, nl speech, nl strength Skin: nl turgor; No rash or lesions Lymph: nl lymph nodes Results Result Diagram: 01/04/19 0432 01/04/19 0432 Results 24hrs Laboratory Tests Test 01/04/19 04:32 White Blood Count 4.8 Red Blood Count 4.60 Hemoglobin 13.9 Hematocrit 41.4 Mean Corpuscular Volume 90.0 Mean Corpuscular Hemoglobin 30.2 Mean Corpuscular Hemoglobin Concent 33.6 Red Cell Distribution Width 12.7 Platelet Count 200 Mean Platelet Volume 10.0 Immature Granulocytes % 0.200 Neutrophils % 61.6 Lymphocytes % 26.5 Monocytes % 9.0 Eosinophils % 2.1 Basophils % 0.6 Nucleated Red Blood Cells % 0.0 Immature Granulocytes # 0.010 Neutrophils # 3.0 Lymphocytes # 1.3 Monocytes # 0.4 Eosinophils # 0.1 Basophils # 0.0 Nucleated Red Blood Cells # 0.0 Sodium Level 140 Potassium Level 4.4 Chloride Level 108 Carbon Dioxide Level 24 Anion Gap 8 Blood Urea Nitrogen 5 L Creatinine 0.49 Est Glomerular Filtrat Rate mL/min > 60 Glucose Level 127 Calcium Level 9.1 Medications Medication Current Medications Acetaminophen (Tylenol Tab) 650 mg Q6H PRN PO PAIN LEVEL 1-10/10; Start 01/02/19 at 17:30 Docusate Sodium (Colace) 100 mg BID PO Last administered on 01/04/19at 09:06; Admin Dose 100 MG; Start 01/02/19 at 21:00 Famotidine (Pepcid) 20 mg DAILY PO Last administered on 01/04/19at 09:06; Admin Dose 20 MG; Start 01/03/19 at 09:00 Tetrahydrozoline HCl (Geneyes Oph) 1 drop Q6H PRN BOTH EYES RED EYES Last administered on 01/03/19at 16:14; Admin Dose 1 DROP; Start 01/02/19 at 17:30 Ondansetron HCl (Zofran Inj) 4 mg Q6H PRN IV NAUSEA/VOMITING; Start 01/02/19 at 17:30 Acetaminophen/ Hydrocodone Bitart ([place] (5/325)) 1 tab Q6H PRN PO .MOD PAIN 4- 6; Start 01/02/19 at 17:30 Docusate Sodium (Colace) 100 mg Q12H PRN PO .CONSTIPATION; Start 01/02/19 at 17:30 Magnesium Hydroxide (Milk Of Mag) 30 ml DAILY PRN PO .CONSTIPATION Last administered on 01/04/19at 02:31; Admin Dose 30 ML; Start 01/02/19 at 17:30 Sodium Chloride (Betty-128 5%) 1 drop QHS BOTH EYES Last administered on 01/03/19at 21:01; Admin Dose 1 DROP; Start 01/02/19 at 21:00 Dextrose/Sodium Chloride 1,000 ml @ 75 mls/hr [id number] IV Last administered on 01/04/19at 06:26; Admin Dose 75 MLS/HR; Start 01/02/19 at 19:30 Cefepime HCl 50 ml @ 100 mls/hr Q12 IVPB Last administered on 01/04/19at 09:06; Admin Dose 100 MLS/HR; Start 01/04/19 at 09:00 MONTRELL FAULKNER MD January 04, 2019 12:19
[2019-01-04 16:15] VITALS: BP 110/68; RESP 18
[2019-01-04 19:50] VITALS: BP 143/89; PULSE 75; RESP 18
[2019-01-04] MEDS: SODIUM CHLORIDE 5% 15ML OPH BOTH EYES SCH (20:44)
[2019-01-05 00:24] VITALS: BP 132/78; PULSE 81; RESP 19
[2019-01-05 08:20] VITALS: BP 130/67; PULSE 58; RESP 18
--- NOTE | 2019-01-05 08:57 | CONS ---
Assessment/Plan Assessment/Plan Assessment/Plan (Daily) IMPRESSION: 1. Dilated gallbladder and bile duct with normal LFT, rule out bile duct stone. Rule out biliary stricture, rule out ampullary pathology. Patient's MRCP was negative 2. Fecal impaction with probable stercoral ulcer. 3. Vaginal bleeding from leiomyomatous uterus. 4. Quadriplegia. 5. Cerebrovascular accident. 6. Hyperlipidemia. 7. Dysphagia, status post G-tube placement. Plan MRCP is negative for biliary obstruction or stricture. Bile duct is 3 mm in diameter. Continue present care Family wants G-tube to be removed but patient is still getting her medication through the G-tube. Unless patient needs 100% and able to take all the medication through the mouth I would defer removal of the G-tube Consultation Date/Type/Reason Admit Date/Time January 02, 2019 at 12:45 Initial Consult Date 01/04/19 Requesting Provider: KELSEY PROCTOR Date/Time of Note DATE: 01/05/19 TIME: 08:55 24 HR Interval Summary Constitutional: no complaints, improved Exam/Review of Systems Exam Vitals Vital Signs Date Temp Pulse Resp B/P (MAP) Pulse Ox O2 O2 Flow FiO2 Time Delivery Rate 01/05/19 98.4 58 18 130/67 96 Room Air 08:20 (88) Intake and Output 01/04/19 01/04/19 01/05/19 1414:59 22:59 06:59 IntakeIntake Total 710 ml 1550 ml 830 ml OutputOutput Total 2 ml 600 ml 1700 ml BalanceBalance 708 ml 950 ml -870 ml Respiratory: diminished breath sounds Cardiovascular: regular rate and rhythm Gastrointestinal: soft Musculoskeletal: nl extremities to inspection, nl gait and stance Results Result Diagram: 01/05/19 0504 01/05/19 0504 Results 24hrs Laboratory Tests Test 01/05/19 05:04 White Blood Count 4.0 L Red Blood Count 4.77 Hemoglobin 14.5 Hematocrit 43.5 Mean Corpuscular Volume 91.2 Mean Corpuscular Hemoglobin 30.4 Mean Corpuscular Hemoglobin Concent 33.3 Red Cell Distribution Width 13.0 Platelet Count 192 Mean Platelet Volume 10.4 Immature Granulocytes % 0.300 Neutrophils % 46.9 Lymphocytes % 39.5 Monocytes % 9.8 Eosinophils % 2.5 Basophils % 1.0 Nucleated Red Blood Cells % 0.0 Immature Granulocytes # 0.010 Neutrophils # 1.9 Lymphocytes # 1.6 Monocytes # 0.4 Eosinophils # 0.1 Basophils # 0.0 Nucleated Red Blood Cells # 0.0 Sodium Level 139 Potassium Level 4.3 Chloride Level 107 Carbon Dioxide Level 27 Anion Gap 5 Blood Urea Nitrogen 4 L Creatinine 0.47 Est Glomerular Filtrat Rate mL/min > 60 Glucose Level 119 Calcium Level 9.2 Medications Medication Current Medications Acetaminophen (Tylenol Tab) 650 mg Q6H PRN PO PAIN LEVEL 1-10/10; Start 01/02/19 at 17:30 Docusate Sodium (Colace) 100 mg BID PO Last administered on 01/04/19 20:44; Admin Dose 100 MG; Start 01/02/19 at 21:00 Famotidine (Pepcid) 20 mg DAILY PO Last administered on 01/04/19 09:06; Admin Dose 20 MG; Start 01/03/19 at 09:00 Tetrahydrozoline HCl (Geneyes Oph) 1 drop Q6H PRN BOTH EYES RED EYES Last administered on 01/03/19 16:14; Admin Dose 1 DROP; Start 01/02/19 at 17:30 Ondansetron HCl (Zofran Inj) 4 mg Q6H PRN IV NAUSEA/VOMITING; Start 01/02/19 at 17:30 Acetaminophen/ Hydrocodone Bitart ([place] (5/325)) 1 tab Q6H PRN PO .MOD PAIN 4- 6; Start 01/02/19 at 17:30 Docusate Sodium (Colace) 100 mg Q12H PRN PO .CONSTIPATION; Start 01/02/19 at 17:30 Magnesium Hydroxide (Milk Of Mag) 30 ml DAILY PRN PO .CONSTIPATION Last administered on 01/04/19 02:31; Admin Dose 30 ML; Start 01/02/19 at 17:30 Sodium Chloride (Betty-128 5%) 1 drop QHS BOTH EYES Last administered on 01/04/19 20:44; Admin Dose 1 DROP; Start 01/02/19 at 21:00 Dextrose/Sodium Chloride 1,000 ml @ 75 mls/hr [id number] IV Last administered on 01/04/19 20:46; Admin Dose 75 MLS/HR; Start 01/02/19 at 19:30 Cefepime HCl 50 ml @ 100 mls/hr Q12 IVPB Last administered on 01/04/19at 20:44; Admin Dose 100 MLS/HR; Start 01/04/19 at 09:00 MONTRELL FAULKNER MD January 05, 2019 08:57
[2019-01-05] MEDS: CEFEPIME 1GM/50 ML (PMX) 50 ML IVPB SCH ×2 (09:14→20:21)
[2019-01-05] MEDS: DOCUSATE SODIUM 100 MG CAP PO SCH ×2 (09:14→20:22)
[2019-01-05] MEDS: FAMOTIDINE 20 MG TAB PO SCH (09:14)
[2019-01-05] MEDS: DEXTROSE 5%-0.45% NACL 1,000 ML IV SCH (11:20)
--- NOTE | 2019-01-05 11:55 | PN ---
Date/Time of Note Date/Time of Note DATE: 01/05/19 TIME: 11:54 Assessment/Plan VTE Prophylaxis Risk score (from Ns)>0 risk: 1 SCD applied (from Nsg): Yes Pharmacological prophylaxis: LMWH Lines/Catheters IV Catheter Type (from Nrsg): Peripheral IV Urinary Cath still in place: Yes Reason Cath still needed: skin wounds contaminated by urine Assessment/Plan Hospital Course - ESBL urine - contact isolation - started on cefepime -Vaginal bleeding, Dr Nath is asked to see pt in CREDENTIALING SPECIALIST eval. monitor H&H. -Severe constipation with concern for stroke or pleural colitis and gallbladder distention with dilated common bile duct per CT of the abdomen and pelvis. St art patient on bowel regimen. Dr. Devi is asked to see patient in gastroenterology consultation. -Gram-negative rods UTI, start Rocephin. 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 -Dysphagia with G-tube -Bedbound status Result Diagram: 01/05/19 0504 01/05/19 0504 Results 24hrs Laboratory Tests Test 01/05/19 05:04 White Blood Count 4.0 L Red Blood Count 4.77 Hemoglobin 14.5 Hematocrit 43.5 Mean Corpuscular Volume 91.2 Mean Corpuscular Hemoglobin 30.4 Mean Corpuscular Hemoglobin Concent 33.3 Red Cell Distribution Width 13.0 Platelet Count 192 Mean Platelet Volume 10.4 Immature Granulocytes % 0.300 Neutrophils % 46.9 Lymphocytes % 39.5 Monocytes % 9.8 Eosinophils % 2.5 Basophils % 1.0 Nucleated Red Blood Cells % 0.0 Immature Granulocytes # 0.010 Neutrophils # 1.9 Lymphocytes # 1.6 Monocytes # 0.4 Eosinophils # 0.1 Basophils # 0.0 Nucleated Red Blood Cells # 0.0 Sodium Level 139 Potassium Level 4.3 Chloride Level 107 Carbon Dioxide Level 27 Anion Gap 5 Blood Urea Nitrogen 4 L Creatinine 0.47 Est Glomerular Filtrat Rate mL/min > 60 Glucose Level 119 Calcium Level 9.2 Subjective 24 Hr Interval Summary Free Text/Dictation Patient not in room so unable to interview Exam/Review of Systems Exam Vitals Vital Signs Date Temp Pulse Resp B/P (MAP) Pulse Ox O2 O2 Flow FiO2 Time Delivery Rate 01/05/19 98.4 58 18 130/67 96 Room Air 08:20 (88) Intake and Output 01/04/19 01/04/19 01/05/19 1515:00 23:00 07:00 IntakeIntake Total 710 ml 1550 ml 830 ml OutputOutput Total 2 ml 600 ml 1700 ml BalanceBalance 708 ml 950 ml -870 ml Exam Unable to examine patient as she is not in room Results Results 24hrs Laboratory Tests Test 01/05/19 05:04 White Blood Count 4.0 L Red Blood Count 4.77 Hemoglobin 14.5 Hematocrit 43.5 Mean Corpuscular Volume 91.2 Mean Corpuscular Hemoglobin 30.4 Mean Corpuscular Hemoglobin Concent 33.3 Red Cell Distribution Width 13.0 Platelet Count 192 Mean Platelet Volume 10.4 Immature Granulocytes % 0.300 Neutrophils % 46.9 Lymphocytes % 39.5 Monocytes % 9.8 Eosinophils % 2.5 Basophils % 1.0 Nucleated Red Blood Cells % 0.0 Immature Granulocytes # 0.010 Neutrophils # 1.9 Lymphocytes # 1.6 Monocytes # 0.4 Eosinophils # 0.1 Basophils # 0.0 Nucleated Red Blood Cells # 0.0 Sodium Level 139 Potassium Level 4.3 Chloride Level 107 Carbon Dioxide Level 27 Anion Gap 5 Blood Urea Nitrogen 4 L Creatinine 0.47 Est Glomerular Filtrat Rate mL/min > 60 Glucose Level 119 Calcium Level 9.2 Medications Medication Current Medications Acetaminophen (Tylenol Tab) 650 mg Q6H PRN PO PAIN LEVEL 1-10/10; Start 01/02/19 at 17:30 Docusate Sodium (Colace) 100 mg BID PO Last administered on 01/05/19at 09:14; Admin Dose 100 MG; Start 01/02/19 at 21:00 Famotidine (Pepcid) 20 mg DAILY PO Last administered on 01/05/19at 09:14; Admin Dose 20 MG; Start 01/03/19 at 09:00 Tetrahydrozoline HCl (Geneyes Oph) 1 drop Q6H PRN BOTH EYES RED EYES Last administered on 01/03/19at 16:14; Admin Dose 1 DROP; Start 01/02/19 at 17:30 Ondansetron HCl (Zofran Inj) 4 mg Q6H PRN IV NAUSEA/VOMITING; Start 01/02/19 at 17:30 Acetaminophen/ Hydrocodone Bitart ([place] (5/325)) 1 tab Q6H PRN PO .MOD PAIN 4- 6; Start 01/02/19 at 17:30 Docusate Sodium (Colace) 100 mg Q12H PRN PO .CONSTIPATION; Start 01/02/19 at 17:30 Magnesium Hydroxide (Milk Of Mag) 30 ml DAILY PRN PO .CONSTIPATION Last administered on 01/04/19at 02:31; Admin Dose 30 ML; Start 01/02/19 at 17:30 Sodium Chloride (Betty-128 5%) 1 drop QHS BOTH EYES Last administered on 01/04/19 20:44; Admin Dose 1 DROP; Start 01/02/19 at 21:00 Dextrose/Sodium Chloride 1,000 ml @ 75 mls/hr [id number] IV Last administered on 01/05/19at 11:20; Admin Dose 75 MLS/HR; Start 01/02/19 at 19:30 Cefepime HCl 50 ml @ 100 mls/hr Q12 IVPB Last administered on 01/05/19at 09:14; Admin Dose 100 MLS/HR; Start 01/04/19 at 09:00 LUCILLE LOPEZ January 05, 2019 11:55
[2019-01-05 14:00] VITALS: BP 132/65; PULSE 80; RESP 18
[2019-01-05 19:20] VITALS: BP 143/79; PULSE 57; RESP 18
[2019-01-05] MEDS: SODIUM CHLORIDE 5% 15ML OPH BOTH EYES SCH (20:22)
[2019-01-06 02:05] VITALS: BP 144/78; PULSE 61; RESP 18
[2019-01-06 08:23] VITALS: BP 123/58; PULSE 56; RESP 18
[2019-01-06] MEDS: CEFEPIME 1GM/50 ML (PMX) 50 ML IVPB SCH ×2 (09:13→20:11)
[2019-01-06] MEDS: DOCUSATE SODIUM 100 MG CAP PO SCH ×2 (09:13→20:11)
[2019-01-06] MEDS: FAMOTIDINE 20 MG TAB PO SCH (09:13)
--- NOTE | 2019-01-06 12:04 | PN ---
Date/Time of Note Date/Time of Note DATE: 01/06/19 TIME: 12:03 Assessment/Plan VTE Prophylaxis Risk score (from Ns)>0 risk: 3 SCD applied (from Nsg): Yes Pharmacological prophylaxis: LMWH Lines/Catheters IV Catheter Type (from Nrsg): Peripheral IV Urinary Cath still in place: Yes Reason Cath still needed: skin wounds contaminated by urine Assessment/Plan Hospital Course - ESBL urine - contact isolation - started on cefepime -Vaginal bleeding, Dr Nath is asked to see pt in IRONWORKER APPRENTICE eval. monitor H&H. -Severe constipation with concern for stroke or pleural colitis and gallbladder distention with dilated common bile duct per CT of the abdomen and pelvis. St art patient on bowel regimen. Dr. Devi is asked to see patient in gastroenterology consultation. -Gram-negative rods UTI, start Rocephin. 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 -Dysphagia with G-tube -Bedbound status Result Diagram: 01/05/19 0504 01/05/19 0504 Subjective 24 Hr Interval Summary Free Text/Dictation Patient not responsive to voice or touch Exam/Review of Systems Exam Vitals Vital Signs Date Temp Pulse Resp B/P (MAP) Pulse Ox O2 O2 Flow FiO2 Time Delivery Rate 01/06/19 98.2 56 18 123/58 99 Room Air 08:23 (79) Intake and Output 01/05/19 01/05/19 01/06/19 1414:59 22:59 06:59 IntakeIntake Total 1200 ml 1650 ml OutputOutput Total 250 ml 800 ml 500 ml BalanceBalance 950 ml 850 ml -500 ml Constitutional: well developed Head: normocephalic, atraumatic Neck: supple Respiratory: diminished breath sounds Cardiovascular: regular rate and rhythm Gastrointestinal: soft, non-tender Extremities: normal pulses Medications Medication Current Medications Acetaminophen (Tylenol Tab) 650 mg Q6H PRN PO PAIN LEVEL 1-10/10; Start 12/19 01/06 at 17:30 Docusate Sodium (Colace) 100 mg BID PO Last administered on 01/06/19at 09:13; Admin Dose 100 MG; Start 01/02/19 at 21:00 Famotidine (Pepcid) 20 mg DAILY PO Last administered on 01/06/19 09:13; Admin Dose 20 MG; Start 01/03/19 at 09:00 Tetrahydrozoline HCl (Geneyes Oph) 1 drop Q6H PRN BOTH EYES RED EYES Last administered on 01/03/19 16:14; Admin Dose 1 DROP; Start 01/02/19 at 17:30 Ondansetron HCl (Zofran Inj) 4 mg Q6H PRN IV NAUSEA/VOMITING; Start 01/02/19 at 17:30 Acetaminophen/ Hydrocodone Bitart ([place] (5/325)) 1 tab Q6H PRN PO .MOD PAIN 4- 6 Last administered on 01/06/19 01:29; Admin Dose 1 TAB; Start 01/02/19 at 17:30 Docusate Sodium (Colace) 100 mg Q12H PRN PO .CONSTIPATION; Start 01/02/19 at 17:30 Magnesium Hydroxide (Milk Of Mag) 30 ml DAILY PRN PO .CONSTIPATION Last administered on 01/04/19 02:31; Admin Dose 30 ML; Start 01/02/19 at 17:30 Sodium Chloride (Betty-128 5%) 1 drop QHS BOTH EYES Last administered on 01/05/19 20:22; Admin Dose 1 DROP; Start 01/02/19 at 21:00 Cefepime HCl 50 ml @ 100 mls/hr Q12 IVPB Last administered on 01/06/19 09:13; Admin Dose 100 MLS/HR; Start 01/04/19 at 09:00 LUCILLE LOPEZ January 06, 2019 12:04
[2019-01-06] MEDS: TETRAHYDROZOLINE 0.05% 15 ML OPH BOTH EYES PRN (12:45)
--- NOTE | 2019-01-06 13:14 | CONS ---
Assessment/Plan Assessment/Plan Hospital Course (Demo Recall) 48 yo female 1. Dilated gallbladder and bile duct with normal LFT -MRCP is negative for biliary obstruction or stricture. Bile duct is 3 mm in diameter. 2. Fecal impaction with probable stercoral ulcer. 3. Vaginal bleeding from leiomyomatous uterus. 4. Quadriplegia. 5. Cerebrovascular accident. 6. Hyperlipidemia. 7. Dysphagia, status post G-tube placement. Plan Bowel regimen Continue present care Speech therapy does not recommend removal of g tube Pt examined and plan of care discussed with Dr. Devi Consultation Date/Type/Reason Admit Date/Time January 02, 2019 at 12:45 Initial Consult Date 01/04/19 Requesting Provider: KELSEY PROCTOR Date/Time of Note DATE: 01/06/19 TIME: 13:09 Exam/Review of Systems Exam Vitals Vital Signs Date Temp Pulse Resp B/P (MAP) Pulse Ox O2 O2 Flow FiO2 Time Delivery Rate 01/06/19 98.2 56 18 123/58 99 Room Air 08:23 (79) Intake and Output 01/05/19 01/05/19 01/06/19 1515:00 23:00 07:00 IntakeIntake Total 1200 ml 1650 ml OutputOutput Total 250 ml 800 ml 500 ml BalanceBalance 950 ml 850 ml -500 ml Respiratory: diminished breath sounds Cardiovascular: regular rate and rhythm Gastrointestinal: soft, non-tender, bowel sounds Results Result Diagram: 01/05/19 0504 01/05/19 0504 Medications Medication Current Medications Acetaminophen (Tylenol Tab) 650 mg Q6H PRN PO PAIN LEVEL 1-10/10; Start 01/02/19 at 17:30 Docusate Sodium (Colace) 100 mg BID PO Last administered on 01/06/19at 09:13; Admin Dose 100 MG; Start 01/02/19 at 21:00 Famotidine (Pepcid) 20 mg DAILY PO Last administered on 01/06/19at 09:13; Admin Dose 20 MG; Start 01/03/19 at 09:00 Tetrahydrozoline HCl (Geneyes Oph) 1 drop Q6H PRN BOTH EYES RED EYES Last administered on 01/06/19at 12:45; Admin Dose 1 DROP; Start 01/02/19 at 17:30 Ondansetron HCl (Zofran Inj) 4 mg Q6H PRN IV NAUSEA/VOMITING; Start 01/02/19 at 17:30 Acetaminophen/ Hydrocodone Bitart ([place] (5/325)) 1 tab Q6H PRN PO .MOD PAIN 4- 6 Last administered on 01/06/19 01:29; Admin Dose 1 TAB; Start 01/02/19 at 17:30 Docusate Sodium (Colace) 100 mg Q12H PRN PO .CONSTIPATION; Start 01/02/19 at 17:30 Magnesium Hydroxide (Milk Of Mag) 30 ml DAILY PRN PO .CONSTIPATION Last admi nistered on 01/04/19 02:31; Admin Dose 30 ML; Start 01/02/19 at 17:30 Sodium Chloride (Betty-128 5%) 1 drop QHS BOTH EYES Last administered on 01/05/19 20:22; Admin Dose 1 DROP; Start 01/02/19 at 21:00 Cefepime HCl 50 ml @ 100 mls/hr Q12 IVPB Last administered on 01/06/19 09:13; Admin Dose 100 MLS/HR; Start 01/04/19 at 09:00 Simethicone (Mylicon) 80 mg Q6H PRN PO DISTENSION/GAS/BLOATING Last administered on 01/06/19 12:35; Admin Dose 80 MG; Start 01/06/19 at 12:30 GI ORTEGA January 06, 2019 13:14
[2019-01-06] MEDS ORDERED: MAGNESIUM HYDROXIDE 30ML CUP PO ONE (13:30)
[2019-01-06 15:03] VITALS: BP 117/62; PULSE 63; RESP 18
[2019-01-06] MEDS: LUBIPROSTONE 24 MCG CAP PO SCH (20:11)
[2019-01-06] MEDS: SODIUM CHLORIDE 5% 15ML OPH BOTH EYES SCH (20:12)
[2019-01-06 20:32] VITALS: BP 112/67; PULSE 79; RESP 18
[2019-01-07 01:57] VITALS: BP 105/57; PULSE 53; RESP 18
[2019-01-07 07:50] VITALS: BP 119/62; PULSE 72; RESP 19
[2019-01-07] MEDS: POLYETHYLENE GLYCOL 17 GM PACKET GTB SCH (08:37)
[2019-01-07] MEDS: FAMOTIDINE 20 MG TAB PO SCH (08:37)
[2019-01-07] MEDS: LUBIPROSTONE 24 MCG CAP PO SCH ×2 (08:37→22:27)
[2019-01-07] MEDS: CEFEPIME 1GM/50 ML (PMX) 50 ML IVPB SCH ×2 (08:37→22:27)
[2019-01-07] MEDS: DOCUSATE SODIUM 100 MG CAP PO SCH ×2 (08:37→22:27)
--- NOTE | 2019-01-07 08:39 | CONS ---
Assessment/Plan Assessment/Plan Hospital Course (Demo Recall) 48 yo female Interval hx: C/O abdominal pain to palpitation, which is not new per pt. No bm since 01/04 1. Dilated gallbladder and bile duct with normal LFT -MRCP is negative for biliary obstruction or stricture. Bile duct is 3 mm in diameter. 2. Fecal impaction with probable stercoral ulcer. 3. Vaginal bleeding from leiomyomatous uterus. 4. Quadriplegia. 5. Cerebrovascular accident. 6. Hyperlipidemia. 7. Dysphagia, status post G-tube placement. Plan RN will give prn MOM today. Bowel regimen Continue present care Speech therapy does not recommend removal of g tube Pt examined and plan of care discussed with Dr. Devi Consultation Date/Type/Reason Admit Date/Time January 02, 2019 at 12:45 Initial Consult Date 01/04/19 Requesting Provider: KELSEY PROCTOR Date/Time of Note DATE: 01/07/19 TIME: 08:37 Exam/Review of Systems Exam Vitals Vital Signs Date Temp Pulse Resp B/P (MAP) Pulse Ox O2 O2 Flow FiO2 Time Delivery Rate 01/07/19 97.2 72 19 119/62 98 07:50 (81) 01/07/19 Room Air 01:57 Intake and Output 01/06/19 01/06/19 01/07/19 1515:00 23:00 07:00 IntakeIntake Total 410 ml 110 ml OutputOutput Total 1 ml 700 ml BalanceBalance 409 ml -590 ml Constitutional: alert Head: normocephalic Eyes: nl sclera, PERRL Respiratory: normal air movement Cardiovascular: regular rate and rhythm Gastrointestinal: soft, bowel sounds, tender Neurological: nl mental status Results Result Diagram: 01/05/19 0504 01/05/19 0504 Results 24hrs Laboratory Tests Test 01/07/19 06:53 Lab Scanned Report REFERENCE LAB Medications Medication Current Medications Acetaminophen (Tylenol Tab) 650 mg Q6H PRN PO PAIN LEVEL 1-10/10; Start 01/02/19 at 17:30 Docusate Sodium (Colace) 100 mg BID PO Last administered on 01/06/19at 20:11; Admin Dose 100 MG; Start 01/02/19 at 21:00 Famotidine (Pepcid) 20 mg DAILY PO Last administered on 01/06/19at 09:13; Admin Dose 20 MG; Start 01/03/19 at 09:00 Tetrahydrozoline HCl (Geneyes Oph) 1 drop Q6H PRN BOTH EYES RED EYES Last administered on 01/06/19 12:45; Admin Dose 1 DROP; Start 01/02/19 at 17:30 Ondansetron HCl (Zofran Inj) 4 mg Q6H PRN IV NAUSEA/VOMITING; Start 01/02/19 at 17:30 Acetaminophen/ Hydrocodone Bitart ([place] (5/325)) 1 tab Q6H PRN PO .MOD PAIN 4- 6 Last administered on 01/06/19 01:29; Admin Dose 1 TAB; Start 01/02/19 at 17:30 Docusate Sodium (Colace) 100 mg Q12H PRN PO .CONSTIPATION; Start 01/02/19 at 17:30 Magnesium Hydroxide (Milk Of Mag) 30 ml DAILY PRN PO .CONSTIPATION Last administered on 01/04/19 02:31; Admin Dose 30 ML; Start 01/02/19 at 17:30 Sodium Chloride (Betty-128 5%) 1 drop QHS BOTH EYES Last administered on 01/06/19 20:12; Admin Dose 1 DROP; Start 01/02/19 at 21:00 Cefepime HCl 50 ml @ 100 mls/hr Q12 IVPB Last administered on 01/06/19 20:11; Admin Dose 100 MLS/HR; Start 01/04/19 at 09:00 Simethicone (Mylicon) 80 mg Q6H PRN PO DISTENSION/GAS/BLOATING Last administered on 01/06/19 12:35; Admin Dose 80 MG; Start 01/06/19 at 12:30 Lubiprostone (Amitiza) 24 mcg BID PO Last administered on 01/06/19 20:11; Admin Dose 24 MCG; Start 01/06/19 at 21:00 Polyethylene Glycol (Miralax) 17 gm DAILY GTB ; Start 01/07/19 at 09:00 GI ORTEGA January 07, 2019 08:39
--- NOTE | 2019-01-07 15:03 | PN ---
Date/Time of Note Date/Time of Note DATE: 01/07/19 TIME: 14:57 Assessment/Plan VTE Prophylaxis Risk score (from Ns)>0 risk: 3 SCD applied (from Ns): Yes Pharmacological prophylaxis: NA/contraindicated Pharm contraindication: bleeding Lines/Catheters IV Catheter Type (from [facility]): [place] Urinary Cath still in place: Yes Reason Cath still needed: urinary retention Assessment/Plan Hospital Course No vaginal bleeding for today per RN, GREEN FEED ATTENDANT recommends possible endometrial biopsy, Pt passed swallow eval, will obtain nutritional consult re possible d/c of Gtube. Assessment/Plan -Vaginal bleeding, s/p eval by Dr Quiroga,GREEN FEED ATTENDANT eval. monitor H&H. -Severe constipation with concern for stroke or pleural colitis and gallbladder distention with dilated common bile duct per CT of the abdomen and pelvis. Start patient on bowel regimen. Dr. Devi is following in gastroenterology consultation. MRCP is negative for biliary obstruction or stricture. Bile duct is 3 mm in diameter. -Gram-negative rods UTI, start Rocephin. 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 -Dysphagia with G-tube, pt passed swallow eval. -Bedbound status Further recommendations based on clinical course. Plan of care discussed with Dr. Dominique. Result Diagram: 01/05/19 0504 01/05/19 0504 Results 24hrs Laboratory Tests Test 01/07/19 06:53 Lab Scanned Report REFERENCE LAB Exam/Review of Systems Exam Vitals Vital Signs Date Temp Pulse Resp B/P (MAP) Pulse Ox O2 O2 Flow FiO2 Time Delivery Rate 01/07/19 97.2 72 19 119/62 98 07:50 (81) 01/07/19 Room Air 01:57 Intake and Output 01/06/19 01/06/19 01/07/19 1515:00 23:00 07:00 IntakeIntake Total 410 ml 110 ml OutputOutput Total 1 ml 700 ml BalanceBalance 409 ml -590 ml Exam Constitutional: alert, non-verbal Respiratory: clear to auscultation Cardiovascular: regular rate and rhythm Gastrointestinal: soft, other (G-tube) Extremities: normal pulses, other (Contracted bilateral lower extremities) Neurological: other (Awake, alert, contracted bilateral lower extremities, right-sided weakness) Skin: nl turgor Results Results 24hrs Laboratory Tests Test 01/07/19 06:53 Lab Scanned Report REFERENCE LAB Medications Medication Current Medications Acetaminophen (Tylenol Tab) 650 mg Q6H PRN PO PAIN LEVEL 1-10/10; Start 01/02/19 at 17:30 Docusate Sodium (Colace) 100 mg BID PO Last administered on 01/07/19 08:37; Admin Dose 100 MG; Start 01/02/19 at 21:00 Famotidine (Pepcid) 20 mg DAILY PO Last administered on 01/07/19 08:37; Admin Dose 20 MG; Start 01/03/19 at 09:00 Tetrahydrozoline HCl (Geneyes Oph) 1 drop Q6H PRN BOTH EYES RED EYES Last administered on 01/06/19 12:45; Admin Dose 1 DROP; Start 01/02/19 at 17:30 Ondansetron HCl (Zofran Inj) 4 mg Q6H PRN IV NAUSEA/VOMITING; Start 01/02/19 at 17:30 Acetaminophen/ Hydrocodone Bitart ([place] (5/325)) 1 tab Q6H PRN PO .MOD PAIN 4- 6 Last administered on 01/06/19 01:29; Admin Dose 1 TAB; Start 01/02/19 at 17:30 Docusate Sodium (Colace) 100 mg Q12H PRN PO .CONSTIPATION; Start 01/02/19 at 17:30 Magnesium Hydroxide (Milk Of Mag) 30 ml DAILY PRN PO .CONSTIPATION Last administered on 01/04/19 02:31; Admin Dose 30 ML; Start 01/02/19 at 17:30 Sodium Chloride (Betty-128 5%) 1 drop QHS BOTH EYES Last administered on 01/06/19 20:12; Admin Dose 1 DROP; Start 01/02/19 at 21:00 Cefepime HCl 50 ml @ 100 mls/hr Q12 IVPB Last administered on 01/07/19 08:37; Admin Dose 100 MLS/HR; Start 01/04/19 at 09:00 Simethicone (Mylicon) 80 mg Q6H PRN PO DISTENSION/GAS/BLOATING Last administered on 01/06/19 12:35; Admin Dose 80 MG; Start 5/19/19 at 12:30 Lubiprostone (Amitiza) 24 mcg BID PO Last administered on 01/07/19at 08:37; Admin Dose 24 MCG; Start 01/06/19 at 21:00 Polyethylene Glycol (Miralax) 17 gm DAILY GTB Last administered on 01/07/19at 08:37; Admin Dose 17 GM; Start 01/07/19 at 09:00 KELSEY PROCTOR January 07, 2019 15:03
[2019-01-07 15:19] VITALS: BP 130/78; PULSE 70; RESP 18
[2019-01-07] MEDS: TETRAHYDROZOLINE 0.05% 15 ML OPH BOTH EYES PRN ×2 (22:27→22:28)
[2019-01-07] MEDS: SODIUM CHLORIDE 5% 15ML OPH BOTH EYES SCH (22:28)
--- NOTE | 2019-01-08 08:02 | CONS ---
Assessment/Plan Assessment/Plan Hospital Course (Demo Recall) 48 yo female 1. Dilated gallbladder and bile duct with normal LFT -MRCP is negative for biliary obstruction or stricture. Bile duct is 3 mm in diameter. 2. Fecal impaction with probable stercoral ulcer. 3. Vaginal bleeding from leiomyomatous uterus. 4. Quadriplegia. 5. Cerebrovascular accident. 6. Hyperlipidemia. 7. Dysphagia, status post G-tube placement. Plan. Bowel regimen Continue present care Pt passed second swallow evaluation with no aspiration. Aspiration precautions Pt examined and plan of care discussed with Dr. Devi Consultation Date/Type/Reason Admit Date/Time January 02, 2019 at 12:45 Initial Consult Date 01/04/19 Requesting Provider: KELSEY PROCTOR Date/Time of Note DATE: 01/08/19 TIME: 07:59 24 HR Interval Summary Free Text/Dictation Pt passed swallow eval yesterday with no signs of aspiration. Pt had bm yesterday. Exam/Review of Systems Exam Vitals Vital Signs Date Temp Pulse Resp B/P (MAP) Pulse Ox O2 O2 Flow FiO2 Time Delivery Rate 01/07/19 97.6 70 18 130/78 94 Room Air 15:19 (95) Intake and Output 01/07/19 01/07/19 01/08/19 1515:00 23:00 07:00 IntakeIntake Total 360 ml 170 ml OutputOutput Total 450 ml 450 ml BalanceBalance 360 ml -280 ml -450 ml Constitutional: alert Psych: no complaints Head: normocephalic Eyes: PERRL Respiratory: normal air movement Cardiovascular: regular rate and rhythm Gastrointestinal: soft, bowel sounds, tender Neurological: nl mental status Results Result Diagram: 01/05/19 0504 01/05/19 0504 Medications Medication Current Medications Acetaminophen (Tylenol Tab) 650 mg Q6H PRN PO PAIN LEVEL 1-10/10; Start 01/02/19 at 17:30 Docusate Sodium (Colace) 100 mg BID PO Last administered on 01/07/19at 22:27; Admin Dose 100 MG; Start 01/02/19 at 21:00 Famotidine (Pepcid) 20 mg DAILY PO Last administered on 01/07/19at 08:37; Admin Dose 20 MG; Start 01/03/19 at 09:00 Tetrahydrozoline HCl (Geneyes Oph) 1 drop Q6H PRN BOTH EYES RED EYES Last administered on 01/07/19 22:28; Admin Dose 1 DROP; Start 01/02/19 at 17:30 Ondansetron HCl (Zofran Inj) 4 mg Q6H PRN IV NAUSEA/VOMITING; Start 01/02/19 at 17:30 Acetaminophen/ Hydrocodone Bitart ([place] (5/325)) 1 tab Q6H PRN PO .MOD PAIN 4- 6 Last administered on 01/06/19 01:29; Admin Dose 1 TAB; Start 01/02/19 at 17:30 Docusate Sodium (Colace) 100 mg Q12H PRN PO .CONSTIPATION; Start 01/02/19 at 17:30 Magnesium Hydroxide (Milk Of Mag) 30 ml DAILY PRN PO .CONSTIPATION Last administered on 01/04/19 02:31; Admin Dose 30 ML; Start 01/02/19 at 17:30 Sodium Chloride (Betty-128 5%) 1 drop QHS BOTH EYES Last administered on 01/07/19 22:28; Admin Dose 1 DROP; Start 01/02/19 at 21:00 Cefepime HCl 50 ml @ 100 mls/hr Q12 IVPB Last administered on 01/07/19 22:27; Admin Dose 100 MLS/HR; Start 01/04/19 at 09:00 Simethicone (Mylicon) 80 mg Q6H PRN PO DISTENSION/GAS/BLOATING Last adminis tered on 01/06/19 12:35; Admin Dose 80 MG; Start 01/06/19 at 12:30 Lubiprostone (Amitiza) 24 mcg BID PO Last administered on 01/07/19 22:27; Admin Dose 24 MCG; Start 01/06/19 at 21:00 Polyethylene Glycol (Miralax) 17 gm DAILY GTB Last administered on 01/07/19 08:37; Admin Dose 17 GM; Start 01/07/19 at 09:00 GI ORTEGA January 08, 2019 08:02
[2019-01-08 08:19] VITALS: BP 120/63; PULSE 65; RESP 18
[2019-01-08] MEDS: DOCUSATE SODIUM 100 MG CAP PO SCH ×2 (09:27→20:40)
[2019-01-08] MEDS: POLYETHYLENE GLYCOL 17 GM PACKET GTB SCH (09:27)
[2019-01-08] MEDS: LUBIPROSTONE 24 MCG CAP PO SCH ×2 (09:27→20:38)
[2019-01-08] MEDS: CEFEPIME 1GM/50 ML (PMX) 50 ML IVPB SCH ×2 (09:27→20:34)
[2019-01-08] MEDS: FAMOTIDINE 20 MG TAB PO SCH (09:28)
[2019-01-08 14:00] VITALS: BP 116/65; PULSE 70; RESP 18
--- NOTE | 2019-01-08 16:36 | PN ---
Date/Time of Note Date/Time of Note DATE: 01/08/19 TIME: 16:31 Assessment/Plan VTE Prophylaxis Risk score (from Ns)>0 risk: 3 SCD applied (from Ns): Yes Pharmacological prophylaxis: NA/contraindicated Pharm contraindication: bleeding Lines/Catheters IV [facility]ter Type (from [facility]): Peripheral IV Urinary Cath still in place: Yes Reason Cath still needed: urinary retention Assessment/Plan Hospital Course No vaginal bleeding for today per RN, MANUFACTURING QUALITY MANAGER recommends possible endometrial biopsy, Pt passed swallow eval, will obtain nutritional consult re possible d/c of Gtube. Assessment/Plan -E. coli ESBL UTI, continue meropenem. -Vaginal bleeding, s/p eval by Dr Quiroga,MANUFACTURING QUALITY MANAGER eval. spoke with Dr. Alex Escoto today patient needs to be n.p.o. for endometrial biopsy. Will start patient is n.p.o. midnight for possible endometrial biopsy tomorrow. -Severe constipation with concern for stroke or pleural colitis and gallbladder distention with dilated common bile duct per CT of the abdomen and pelvis, resolving. Continue patient on bowel regimen. Dr. Devi is following in gastroenterology consultation. MRCP is negative for biliary obstruction or stricture. Bile duct is 3 mm in diameter. 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 -Dysphagia with G-tube, status post swallow evaluation, patient tolerates p.o. diet however dietary intake is less than 50% which makes patient not a candidate for G-tube removal at this point -Bedbound status Further recommendations based on clinical course. Plan of care discussed with Dr. Dominique. Result Diagram: 01/05/19 0504 01/05/19 0504 Exam/Review of Systems Exam Vitals Vital Signs Date Temp Pulse Resp B/P (MAP) Pulse Ox O2 O2 Flow FiO2 Time Delivery Rate 01/08/19 97.6 70 18 116/65 99 Room Air 14:00 (82) Intake and Output 01/07/19 01/07/19 01/08/19 1515:00 23:00 07:00 IntakeIntake Total 360 ml 170 ml OutputOutput Total 450 ml 450 ml BalanceBalance 360 ml -280 ml -450 ml Exam Constitutional: alert, non-verbal Respiratory: clear to auscultation Cardiovascular: regular rate and rhythm Gastrointestinal: soft, other (G-tube) Extremities: normal pulses, other (Contracted bilateral lower extremities) Neurological: other (Awake, alert, contracted bilateral lower extremities, right-sided weakness) Skin: nl turgor Medications Medication Current Medications Acetaminophen (Tylenol Tab) 650 mg Q6H PRN PO PAIN LEVEL 1-10/10; Start 01/02/19 at 17:30 Docusate Sodium (Colace) 100 mg BID PO Last administered on 01/08/19 09:27; Admin Dose 100 MG; Start 01/02/19 at 21:00 Famotidine (Pepcid) 20 mg DAILY PO Last administered on 01/08/19 09:28; Admin Dose 20 MG; Start 01/03/19 at 09:00 Tetrahydrozoline HCl (Geneyes Oph) 1 drop Q6H PRN BOTH EYES RED EYES Last administered on 01/07/19 22:28; Admin Dose 1 DROP; Start 01/02/19 at 17:30 Ondansetron HCl (Zofran Inj) 4 mg Q6H PRN IV NAUSEA/VOMITING; Start 01/02/19 at 17:30 Acetaminophen/ Hydrocodone Bitart ([place] (5/325)) 1 tab Q6H PRN PO .MOD PAIN 4- 6 Last administered on 01/06/19 01:29; Admin Dose 1 TAB; Start 01/02/19 at 17:30 Docusate Sodium (Colace) 100 mg Q12H PRN PO .CONSTIPATION; Start 01/02/19 at 17:30 Magnesium Hydroxide (Milk Of Mag) 30 ml DAILY PRN PO .CONSTIPATION Last administered on 01/04/19 02:31; Admin Dose 30 ML; Start 01/02/19 at 17:30 Sodium Chloride (Betty-128 5%) 1 drop QHS BOTH EYES Last administered on 01/07/19 22:28; Admin Dose 1 DROP; Start 01/02/19 at 21:00 Cefepime HCl 50 ml @ 100 mls/hr Q12 IVPB Last administered on 01/08/19 09:27; Admin Dose 100 MLS/HR; Start 01/04/19 at 09:00 Simethicone (Mylicon) 80 mg Q6H PRN PO DISTENSION/GAS/BLOATING Last administered on 5/19/19at 12:35; Admin Dose 80 MG; Start 01/06/19 at 12:30 Lubiprostone (Amitiza) 24 mcg BID PO Last administered on 01/08/19 09:27; Admin Dose 24 MCG; Start 01/06/19 at 21:00 Polyethylene Glycol (Miralax) 17 gm DAILY GTB Last administered on 01/08/19 09:27; Admin Dose 17 GM; Start 01/07/19 at 09:00 KELSEY PROCTOR January 08, 2019 16:36
--- NOTE | 2019-01-08 18:28 | CONS ---
DATE OF ADMISSION: 01/02/2019 DATE OF CONSULTATION: 01/08/2019 TYPE OF CONSULTATION: Infectious disease. REQUESTING PROVIDER: Verona Moran NP Thank you for this consultation. 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 The patient was admitted with vaginal bleeding and was found bacteria in her urine culture. MICROBIOLOGY: Urine culture grew E. coli ESBL on admission. ANTIMICROBIALS: She was started on IV cefepime, which has a good sensitivity to it. VITAL SIGNS: The patient had been afebrile since admission. LABORATORY DATA: WBC 3 days ago was 4 with platelets 192, no shift, no bands. BUN 4, creatinine 0.47. DIAGNOSTICS: MRI of the abdomen on admission revealed no evidence of biliary duct obstruction, cholelithiasis without inflammatory changes of the gallbladder. CT of the abdomen and pelvis also was done and revealed fecal impaction of the rectum with severe constipation pattern concern for stercoral colitis or proctitis. Please see full report in the chart. The patient had Suarez catheter placement and had been afebrile. No vaginal bleeding per report. SOCIAL HISTORY: The patient came from the facility. PHYSICAL EXAMINATION: GENERAL: This is a chronically ill-appearing, middle-aged woman who is awake, somewhat communicative. The patient is in no distress. HEENT: Head is atraumatic, normocephalic. Sclerae are anicteric. Buccal mucosa is dry. NECK: Supple. CHEST: Rise symmetrical. Breath sounds are clear, diminished to bases. HEART: S1, S2. ABDOMEN: Soft. Bowel tones are present. EXTREMITIES: Wasted. DIAGNOSTIC IMPRESSION: This is a 48-year-old woman admitted with vaginal bleeding with Escherichia coli extended-spectrum beta-lactamase urinary tract infection, on appropriate antibiotic regimen. The patient is being seen by Dr. Devi in GI consultation for dilated gallbladder with MRCP was negative. As mentioned before, she also had fecal impaction on admission and received laxatives and currently on Colace. We will continue her on current regimen for urinary tract infection to complete at least 7 days. Repeat urine culture. Continue anti-aspiration precautions. Discussed with Dr. Medina who is covering for Dr. Iniguez. Dictated By: KEYONNA KING HUMAN RESOURCES ASSISTANT MANAGER for GALINA INIGUEZ MD NI/NTS Conf#: [id number] DID#: [id number] CC: SPIKE BANDA MD;*EndCC* MTDD
[2019-01-08 20:40] VITALS: BP 131/76; PULSE 88; RESP 18
[2019-01-09] MEDS: DEXTROSE 5%-0.45% NACL 1,000 ML IV SCH ×2 (00:39→18:46)
[2019-01-09] MEDS: SODIUM CHLORIDE 5% 15ML OPH BOTH EYES SCH (00:41)
[2019-01-09 02:26] VITALS: BP 119/83; PULSE 88; RESP 18
[2019-01-09 08:51] VITALS: BP 122/64; PULSE 61; RESP 18
[2019-01-09] MEDS: POLYETHYLENE GLYCOL 17 GM PACKET GTB SCH (09:00)
[2019-01-09] MEDS: DOCUSATE SODIUM 100 MG CAP PO SCH ×2 (09:00→22:11)
[2019-01-09] MEDS: FAMOTIDINE 20 MG TAB PO SCH (09:00)
[2019-01-09] MEDS: LUBIPROSTONE 24 MCG CAP PO SCH ×2 (09:00→22:11)
[2019-01-09] MEDS: CEFEPIME 1GM/50 ML (PMX) 50 ML IVPB SCH ×2 (09:52→21:40)
--- NOTE | 2019-01-09 11:48 | PN ---
Date/Time of Note Date/Time of Note DATE: 01/09/19 TIME: 11:45 Assessment/Plan VTE Prophylaxis Risk score (from [facility] [place], [place]0 risk: 3 SCD applied (from [facility] [place], [place]): Yes Pharmacological prophylaxis: NA/contraindicated Pharm contraindication: bleeding Lines/Catheters IV Catheter Type (from [facility]): Peripheral IV Urinary Cath still in place: No Assessment/Plan Hospital Course I spoke with Dr. Wilcox who is [employer] OPERATOR environmental studies faculty member and she is unable to do endometrial biopsy today, will resume diet. Assessment/Plan -E. coli ESBL UTI, continue meropenem. -Vaginal bleeding, s/p eval by Dr Quiroga,BANBURY OPERATOR eval. spoke with Dr. Long 01/08 patient needs to be n.p.o. for endometrial biopsy. Pt is NPO. spoke with Dr Wilcox, unable to do endometrial biopsy today recommendations to call [employer] OPERATOR environmental studies faculty member tomorrow. -Severe constipation with concern for stroke or pleural colitis and gallbladder distention with dilated common bile duct per CT of the abdomen and pelvis, resolving. Continue patient on bowel regimen. Dr. Devi is following in gastroenterology consultation. MRCP is negative for biliary obstruction or stricture. Bile duct is 3 mm in diameter. 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 -Dysphagia with G-tube, status post swallow evaluation, patient tolerates p.o. diet however dietary intake is less than 50% which makes patient not a candidate for G-tube removal at this point -Bedbound status Further recommendations based on clinical course. Plan of care discussed with Dr. Dominique. Result Diagram: 01/09/19 0501 01/09/19 0501 Results 24hrs Laboratory Tests Test 01/09/19 05:01 White Blood Count 5.6 # Red Blood Count 4.71 Hemoglobin 14.3 Hematocrit 42.1 Mean Corpuscular Volume 89.4 Mean Corpuscular Hemoglobin 30.4 Mean Corpuscular Hemoglobin Concent 34.0 Red Cell Distribution Width 12.4 Platelet Count 204 Mean Platelet Volume 9.9 Immature Granulocytes % 0.400 Neutrophils % 53.7 Lymphocytes % 30.8 Monocytes % 11.5 H Eosinophils % 2.9 Basophils % 0.7 Nucleated Red Blood Cells % 0.0 Immature Granulocytes # 0.020 Neutrophils # 3.0 Lymphocytes # 1.7 Monocytes # 0.6 Eosinophils # 0.2 Basophils # 0.0 Nucleated Red Blood Cells # 0.0 Sodium Level 136 Potassium Level 4.3 Chloride Level 103 Carbon Dioxide Level 26 Anion Gap 7 Blood Urea Nitrogen 8 Creatinine 0.46 Est Glomerular Filtrat Rate mL/min > 60 Glucose Level 129 Calcium Level 9.0 Exam/Review of Systems Exam Vitals Vital Signs Date Temp Pulse Resp B/P (MAP) Pulse Ox O2 O2 Flow FiO2 Time Delivery Rate 01/09/19 98.3 61 18 122/64 96 Room Air 08:51 (83) Intake and Output 01/08/19 01/08/19 01/09/19 1515:00 23:00 07:00 IntakeIntake Total 250 ml 400 ml 300 ml OutputOutput Total 150 ml 600 ml BalanceBalance 100 ml -200 ml 300 ml Exam Constitutional: alert, non-verbal Respiratory: clear to auscultation Cardiovascular: regular rate and rhythm Gastrointestinal: soft, other (G-tube) Extremities: normal pulses, other (Contracted bilateral lower extremities) Neurological: other (Awake, alert, contracted bilateral lower extremities, right-sided weakness) Skin: nl turgor Results Results 24hrs Laboratory Tests Test 01/09/19 05:01 White Blood Count 5.6 # Red Blood Count 4.71 Hemoglobin 14.3 Hematocrit 42.1 Mean Corpuscular Volume 89.4 Mean Corpuscular Hemoglobin 30.4 Mean Corpuscular Hemoglobin Concent 34.0 Red Cell Distribution Width 12.4 Platelet Count 204 Mean Platelet Volume 9.9 Immature Granulocytes % 0.400 Neutrophils % 53.7 Lymphocytes % 30.8 Monocytes % 11.5 H Eosinophils % 2.9 Basophils % 0.7 Nucleated Red Blood Cells % 0.0 Immature Granulocytes # 0.020 Neutrophils # 3.0 Lymphocytes # 1.7 Monocytes # 0.6 Eosinophils # 0.2 Basophils # 0.0 Nucleated Red Blood Cells # 0.0 Sodium Level 136 Potassium Level 4.3 Chloride Level 103 Carbon Dioxide Level 26 Anion Gap 7 Blood Urea Nitrogen 8 Creatinine 0.46 Est Glomerular Filtrat Rate mL/min > 60 Glucose Level 129 Calcium Level 9.0 Medications Medication Current Medications Acetaminophen (Tylenol Tab) 650 mg Q6H PRN PO PAIN LEVEL 1-10/10; Start at 17:30 Docusate Sodium (Colace) 100 mg BID PO Last administered on 01/08/19 20:40; Admin Dose 100 MG; Start 01/02/19 at 21:00 Famotidine (Pepcid) 20 mg DAILY PO Last administered on 01/08/19 09:28; Admin Dose 20 MG; Start 01/03/19 at 09:00 Tetrahydrozoline HCl (Geneyes Oph) 1 drop Q6H PRN BOTH EYES RED EYES Last administered on 01/07/19 22:28; Admin Dose 1 DROP; Start 01/02/19 at 17:30 Ondansetron HCl (Zofran Inj) 4 mg Q6H PRN IV NAUSEA/VOMITING; Start 01/02/19 at 17:30 Acetaminophen/ Hydrocodone Bitart ([place] (5/325)) 1 tab Q6H PRN PO .MOD PAIN 4- 6 Last administered on 01/06/19 01:29; Admin Dose 1 TAB; Start 01/02/19 at 17:30 Docusate Sodium (Colace) 100 mg Q12H PRN PO .CONSTIPATION; Start 01/02/19 at 17:30 Magnesium Hydroxide (Milk Of Mag) 30 ml DAILY PRN PO .CONSTIPATION Last administered on 01/04/19 02:31; Admin Dose 30 ML; Start 01/02/19 at 17:30 Sodium Chloride (Betty-128 5%) 1 drop QHS BOTH EYES Last administered on 01/09/19 00:41; Admin Dose 1 DROP; Start 01/02/19 at 21:00 Cefepime HCl 50 ml @ 100 mls/hr Q12 IVPB Last administered on 01/09/19 09:52; Admin Dose 100 MLS/HR; Start 01/04/19 at 09:00 Simethicone (Mylicon) 80 mg Q6H PRN PO DISTENSION/GAS/BLOATING Last administered on 01/06/19 12:35; Admin Dose 80 MG; Start 01/06/19 at 12:30 Lubiprostone (Amitiza) 24 mcg BID PO Last administered on 01/08/19 20:38; Admin Dose 24 MCG; Start 01/06/19 at 21:00 Polyethylene Glycol (Miralax) 17 gm DAILY GTB Last administered on 01/08/19 09:27; Admin Dose 17 GM; Start 01/07/19 at 09:00 Dextrose/Sodium Chloride 1,000 ml @ 60 mls/hr [id number] IV Last administered on 01/09/19at 00:39; Admin Dose 60 MLS/HR; Start 01/09/19 at 00:00 KELSEY PROCTOR January 09, 2019 11:48
--- NOTE | 2019-01-09 14:00 | CONS ---
Assessment/Plan Assessment/Plan Hospital Course (Demo Recall) No acute events overnight patient is lying comfortably in bed no fevers WBC 5.6 no shift no bands BUN 8 creatinine 0.46 Microbiology: Urine culture on admission grew E. coli ESBL repeat culture pending Indwelling's: PEG Antimicrobials: Cefepime day #6 PHYSICAL EXAMINATION: GENERAL: This is a chronically ill-appearing, middle-aged woman who is awake, somewhat communicative. The patient is in no distress. HEENT: Head is atraumatic, normocephalic. Sclerae are anicteric. Buccal mucos a is dry. NECK: Supple. CHEST: Rise symmetrical. Breath sounds are clear, diminished to bases. HEART: S1, S2. ABDOMEN: Soft. Bowel tones are present. EXTREMITIES: Wasted. Assessment: 1. E. coli ESBL UTI 2. Vaginal bleeding on admission 3. History of intracerebral hemorrhage with aneurysmal rupture 4. Hypertension Plan: Patient remains stable, completing antibiotics, pending endometrial biopsy Consultation Date/Type/Reason Admit Date/Time January 02, 2019 at 12:45 Initial Consult Date 01/04/19 Requesting Provider: KELSEY PROCTOR Date/Time of Note DATE: 01/09/19 TIME: 14:00 Exam/Review of Systems Exam Vitals Vital Signs Date Temp Pulse Resp B/P (MAP) Pulse Ox O2 O2 Flow FiO2 Time Delivery Rate 01/09/19 98.3 61 18 122/64 96 Room Air 08:51 (83) Intake and Output 01/08/19 01/08/19 01/09/19 1515:00 23:00 07:00 IntakeIntake Total 250 ml 400 ml 300 ml OutputOutput Total 150 ml 600 ml BalanceBalance 100 ml -200 ml 300 ml Results Result Diagram: 01/09/19 0501 01/09/19 0501 Results 24hrs Laboratory Tests Test 01/09/19 05:01 White Blood Count 5.6 # Red Blood Count 4.71 Hemoglobin 14.3 Hematocrit 42.1 Mean Corpuscular Volume 89.4 Mean Corpuscular Hemoglobin 30.4 Mean Corpuscular Hemoglobin Concent 34.0 Red Cell Distribution Width 12.4 Platelet Count 204 Mean Platelet Volume 9.9 Immature Granulocytes % 0.400 Neutrophils % 53.7 Lymphocytes % 30.8 Monocytes % 11.5 H Eosinophils % 2.9 Basophils % 0.7 Nucleated Red Blood Cells % 0.0 Immature Granulocytes # 0.020 Neutrophils # 3.0 Lymphocytes # 1.7 Monocytes # 0.6 Eosinophils # 0.2 Basophils # 0.0 Nucleated Red Blood Cells # 0.0 Sodium Level 136 Potassium Level 4.3 Chloride Level 103 Carbon Dioxide Level 26 Anion Gap 7 Blood Urea Nitrogen 8 Creatinine 0.46 Est Glomerular Filtrat Rate mL/min > 60 Glucose Level 129 Calcium Level 9.0 Medications Medication Current Medications Acetaminophen (Tylenol Tab) 650 mg Q6H PRN PO PAIN LEVEL 1-10/10; Start 01/02/19 at 17:30 Docusate Sodium (Colace) 100 mg BID PO Last administered on 01/08/19 20:40; Admin Dose 100 MG; Start 01/02/19 at 21:00 Famotidine (Pepcid) 20 mg DAILY PO Last administered on 01/08/19 09:28; Admin Dose 20 MG; Start 01/03/19 at 09:00 Tetrahydrozoline HCl (Geneyes Oph) 1 drop Q6H PRN BOTH EYES RED EYES Last administered on 01/07/19 22:28; Admin Dose 1 DROP; Start 01/02/19 at 17:30 Ondansetron HCl (Zofran Inj) 4 mg Q6H PRN IV NAUSEA/VOMITING; Start 01/02/19 at 17:30 Acetaminophen/ Hydrocodone Bitart ([place] (5/325)) 1 tab Q6H PRN PO .MOD PAIN 4- 6 Last administered on 01/06/19 01:29; Admin Dose 1 TAB; Start 01/02/19 at 17:30 Docusate Sodium (Colace) 100 mg Q12H PRN PO .CONSTIPATION; Start 01/02/19 at 17:30 Magnesium Hydroxide (Milk Of Mag) 30 ml DAILY PRN PO .CONSTIPATION Last administered on 01/04/19 02:31; Admin Dose 30 ML; Start 01/02/19 at 17:30 Sodium Chloride (Betty-128 5%) 1 drop QHS BOTH EYES Last administered on 01/09/19 00:41; Admin Dose 1 DROP; Start 01/02/19 at 21:00 Cefepime HCl 50 ml @ 100 mls/hr Q12 IVPB Last administered on 01/09/19 09:52; Admin Dose 100 MLS/HR; Start 01/04/19 at 09:00 Simethicone (Mylicon) 80 mg Q6H PRN PO DISTENSION/GAS/BLOATING Last administere d on 01/06/19at 12:35; Admin Dose 80 MG; Start 01/06/19 at 12:30 Lubiprostone (Amitiza) 24 mcg BID PO Last administered on 01/08/19at 20:38; Admin Dose 24 MCG; Start 01/06/19 at 21:00 Polyethylene Glycol (Miralax) 17 gm DAILY GTB Last administered on 01/08/19at 09:27; Admin Dose 17 GM; Start 01/07/19 at 09:00 Dextrose/Sodium Chloride 1,000 ml @ 60 mls/hr [id number] IV Last administered on 01/09/19at 00:39; Admin Dose 60 MLS/HR; Start 01/09/19 at 00:00 KEYONNA KING NP January 09, 2019 14:00
[2019-01-09 15:57] VITALS: BP 114/71; PULSE 93; RESP 18
[2019-01-09 17:26] VITALS: BP 121/78; PULSE 82; RESP 18
--- NOTE | 2019-01-09 17:54 | CONS ---
Assessment/Plan Assessment/Plan Assessment/Plan (Daily) Hospital Course (Demo Recall) 48 yo female 1. Dilated gallbladder and bile duct with normal LFT -MRCP is negative for biliary obstruction or stricture. Bile duct is 3 mm in diameter. 2. Fecal impaction with probable stercoral ulcer. 3. Vaginal bleeding from leiomyomatous uterus. 4. Quadriplegia. 5. Cerebrovascular accident. 6. Hyperlipidemia. 7. Dysphagia, status post G-tube placement. Patient passed a swallow study and is able to eat through mouth Plan. Bowel regimen Continue present care Pt passed second swallow evaluation with no aspiration. Aspiration precautions Consultation Date/Type/Reason Admit Date/Time January 02, 2019 at 12:45 Initial Consult Date 01/04/19 Requesting Provider: KELSEY PROCTOR Date/Time of Note DATE: 01/09/19 TIME: 17:53 24 HR Interval Summary Constitutional: no complaints, improved Exam/Review of Systems Exam Vitals Vital Signs Date Temp Pulse Resp B/P (MAP) Pulse Ox O2 O2 Flow FiO2 Time Delivery Rate 01/09/19 98.3 82 18 121/78 100 Room Air 17:26 (92) Intake and Output 01/08/19 01/08/19 01/09/19 1515:00 23:00 07:00 IntakeIntake Total 250 ml 400 ml 300 ml OutputOutput Total 150 ml 600 ml BalanceBalance 100 ml -200 ml 300 ml Constitutional: alert, oriented, well developed Psych: no complaints, nl mood/affect Head: normocephalic, atraumatic Eyes: nl conjunctiva, EOMI, nl lids, nl sclera, PERRL ENMT: nl external ears & nose, nl lips & teeth, nl nasal mucosa & septum Neck: supple, non-tender Respiratory: clear to auscultation, normal air movement Cardiovascular: regular rate and rhythm, nl pulses Gastrointestinal: soft, nl liver, spleen, non-tender Musculoskeletal: nl extremities to inspection, nl gait and stance Extremities: normal pulses Neurological: DEPARTMENT STORE DOOR GREETER II-XII intact, nl mental status, nl speech, nl strength Skin: nl turgor; No rash or lesions Lymph: nl lymph nodes Results Result Diagram: 01/09/19 0501 01/09/19 0501 Results 24hrs Laboratory Tests Test 01/09/19 05:01 White Blood Count 5.6 # Red Blood Count 4.71 Hemoglobin 14.3 Hematocrit 42.1 Mean Corpuscular Volume 89.4 Mean Corpuscular Hemoglobin 30.4 Mean Corpuscular Hemoglobin Concent 34.0 Red Cell Distribution Width 12.4 Platelet Count 204 Mean Platelet Volume 9.9 Immature Granulocytes % 0.400 Neutrophils % 53.7 Lymphocytes % 30.8 Monocytes % 11.5 H Eosinophils % 2.9 Basophils % 0.7 Nucleated Red Blood Cells % 0.0 Immature Granulocytes # 0.020 Neutrophils # 3.0 Lymphocytes # 1.7 Monocytes # 0.6 Eosinophils # 0.2 Basophils # 0.0 Nucleated Red Blood Cells # 0.0 Sodium Level 136 Potassium Level 4.3 Chloride Level 103 Carbon Dioxide Level 26 Anion Gap 7 Blood Urea Nitrogen 8 Creatinine 0.46 Est Glomerular Filtrat Rate mL/min > 60 Glucose Level 129 Calcium Level 9.0 Medications Medication Current Medications Acetaminophen (Tylenol Tab) 650 mg Q6H PRN PO PAIN LEVEL 1-10/10; Start 01/02/19 at 17:30 Docusate Sodium (Colace) 100 mg BID PO Last administered on 01/08/19at 20:40; Admin Dose 100 MG; Start 01/02/19 at 21:00 Famotidine (Pepcid) 20 mg DAILY PO Last administered on 01/08/19 09:28; Admin Dose 20 MG; Start 01/03/19 at 09:00 Tetrahydrozoline HCl (Geneyes Oph) 1 drop Q6H PRN BOTH EYES RED EYES Last administered on 01/07/19at 22:28; Admin Dose 1 DROP; Start 01/02/19 at 17:30 Ondansetron HCl (Zofran Inj) 4 mg Q6H PRN IV NAUSEA/VOMITING; Start 01/02/19 at 17:30 Acetaminophen/ Hydrocodone Bitart ([place] (5/325)) 1 tab Q6H PRN PO .MOD PAIN 4- 6 Last administered on 01/06/19at 01:29; Admin Dose 1 TAB; Start 01/02/19 at 17:30 Docusate Sodium (Colace) 100 mg Q12H PRN PO .CONSTIPATION; Start 01/02/19 at 17:30 Magnesium Hydroxide (Milk Of Mag) 30 ml DAILY PRN PO .CONSTIPATION Last administered on 01/04/19at 02:31; Admin Dose 30 ML; Start 01/02/19 at 17:30 Sodium Chloride (Betty-128 5%) 1 drop QHS BOTH EYES Last administered on 01/09/19 00:41; Admin Dose 1 DROP; Start 01/02/19 at 21:00 Cefepime HCl 50 ml @ 100 mls/hr Q12 IVPB Last administered on 01/09/19 09:52; Admin Dose 100 MLS/HR; Start 01/04/19 at 09:00 Simethicone (Mylicon) 80 mg Q6H PRN PO DISTENSION/GAS/BLOATING Last administered on 01/06/19 12:35; Admin Dose 80 MG; Start 01/06/19 at 12:30 Lubiprostone (Amitiza) 24 mcg BID PO Last administered on 01/08/19 20:38; Admin Dose 24 MCG; Start 01/06/19 at 21:00 Polyethylene Glycol (Miralax) 17 gm DAILY GTB Last administered on 01/08/19 09:27; Admin Dose 17 GM; Start 01/07/19 at 09:00 Dextrose/Sodium Chloride 1,000 ml @ 60 mls/hr [id number] IV Last administered on 01/09/19 00:39; Admin Dose 60 MLS/HR; Start 01/09/19 at 00:00 MONTRELL FAULKNER MD January 09, 2019 17:54
[2019-01-09 20:53] VITALS: BP 136/86; PULSE 60; RESP 16
[2019-01-10] MEDS: SODIUM CHLORIDE 5% 15ML OPH BOTH EYES SCH ×2 (04:09→20:46)
[2019-01-10 08:55] VITALS: BP 146/69; PULSE 75; RESP 18
[2019-01-10] MEDS: DOCUSATE SODIUM 100 MG CAP PO SCH ×2 (09:00→20:48)
[2019-01-10] MEDS: LUBIPROSTONE 24 MCG CAP PO SCH ×2 (09:00→20:47)
[2019-01-10] MEDS: FAMOTIDINE 20 MG TAB PO SCH (09:00)
[2019-01-10] MEDS: POLYETHYLENE GLYCOL 17 GM PACKET GTB SCH (09:00)
[2019-01-10] MEDS: CEFEPIME 1GM/50 ML (PMX) 50 ML IVPB SCH ×2 (09:33→20:46)
[2019-01-10] MEDS: DEXTROSE 5%-0.45% NACL 1,000 ML IV SCH (09:34)
--- NOTE | 2019-01-10 15:23 | CONS ---
Assessment/Plan Assessment/Plan Hospital Course (Demo Recall) No acute events overnight patient is lying comfortably in bed no fevers Microbiology: Urine culture on admission grew E. coli ESBL repeat culture negative Indwelling's: PEG Antimicrobials: Cefepime day # 7 PHYSICAL EXAMINATION: GENERAL: This is a chronically ill-appearing, middle-aged woman who is awake, somewhat communicative. The patient is in no distress. HEENT: Head is atraumatic, normocephalic. Sclerae are anicteric. Buccal mucosa is dry. NECK: Supple. CHEST: Rise symmetrical. Breath sounds are clear, diminished to bases. HEART: S1, S2. ABDOMEN: Soft. Bowel tones are present. EXTREMITIES: Wasted. Assessment: 1. E. coli ESBL UTI 2. Vaginal bleeding on admission 3. History of intracerebral hemorrhage with aneurysmal rupture 4. Hypertension Plan: Patient remains stable, repeat urine culture negative, discontinue antibiotics in a.m. Consultation Date/Type/Reason Admit Date/Time January 02, 2019 at 12:45 Initial Consult Date 01/04/19 Type of Consult id Requesting Provider: KELSEY PROCTOR Date/Time of Note DATE: 01/10/19 TIME: 15:22 Exam/Review of Systems Exam Vitals Vital Signs Date Temp Pulse Resp B/P (MAP) Pulse Ox O2 O2 Flow FiO2 Time Delivery Rate 01/10/19 98.5 75 18 146/69 97 Room Air 08:55 (94) Intake and Output 01/09/19 01/09/19 01/10/19 1515:00 23:00 07:00 IntakeIntake Total 50 ml 980 ml 600 ml OutputOutput Total 550 ml 700 ml BalanceBalance -500 ml 280 ml 600 ml Results Result Diagram: 01/09/19 0501 01/09/19 0501 Medications Medication Current Medications Acetaminophen (Tylenol Tab) 650 mg Q6H PRN PO PAIN LEVEL 1-10/10; Start 01/02/19 at 17:30 Docusate Sodium (Colace) 100 mg BID PO Last administered on 01/09/19at 22:11; Admin Dose 100 MG; Start 01/02/19 at 21:00 Famotidine (Pepcid) 20 mg DAILY PO Last administered on 01/08/19at 09:28; Admin Dose 20 MG; Start 01/03/19 at 09:00 Tetrahydrozoline HCl (Geneyes Oph) 1 drop Q6H PRN BOTH EYES RED EYES Last administered on 01/07/19 22:28; Admin Dose 1 DROP; Start 01/02/19 at 17:30 Ondansetron HCl (Zofran Inj) 4 mg Q6H PRN IV NAUSEA/VOMITING; Start 01/02/19 at 17:30 Acetaminophen/ Hydrocodone Bitart ([place] (5/325)) 1 tab Q6H PRN PO .MOD PAIN 4- 6 Last administered on 01/06/19 01:29; Admin Dose 1 TAB; Start 01/02/19 at 17:30 Docusate Sodium (Colace) 100 mg Q12H PRN PO .CONSTIPATION; Start 01/02/19 at 17:30 Magnesium Hydroxide (Milk Of Mag) 30 ml DAILY PRN PO .CONSTIPATION Last administered on 01/04/19 02:31; Admin Dose 30 ML; Start 01/02/19 at 17:30 Sodium Chloride (Betty-128 5%) 1 drop QHS BOTH EYES Last administered on 01/10/19 04:09; Admin Dose 1 DROP; Start 01/02/19 at 21:00 Cefepime HCl 50 ml @ 100 mls/hr Q12 IVPB Last administered on 01/10/19 09:33; Admin Dose 100 MLS/HR; Start 01/04/19 at 09:00 Simethicone (Mylicon) 80 mg Q6H PRN PO DISTENSION/GAS/BLOATING Last admi nistered on 01/06/19 12:35; Admin Dose 80 MG; Start 01/06/19 at 12:30 Lubiprostone (Amitiza) 24 mcg BID PO Last administered on 01/09/19 22:11; Admin Dose 24 MCG; Start 01/06/19 at 21:00 Polyethylene Glycol (Miralax) 17 gm DAILY GTB Last administered on 01/08/19 09:27; Admin Dose 17 GM; Start 01/07/19 at 09:00 Dextrose/Sodium Chloride 1,000 ml @ 60 mls/hr [id number] IV Last administered on 01/10/19 09:34; Admin Dose 60 MLS/HR; Start 01/09/19 at 00:00 KEYONNA KING NP January 10, 2019 15:23
--- NOTE | 2019-01-10 17:20 | PN ---
Date/Time of Note Date/Time of Note DATE: 01/10/19 TIME: 17:10 Assessment/Plan VTE Prophylaxis Risk score (from [facility] [place])>0 risk: 3 SCD applied (from [facility] [place]): Yes Pharmacological prophylaxis: NA/contraindicated Pharm contraindication: bleeding Lines/Catheters IV [facility] Type [facility] Peripheral IV Urinary Cath still in place: No Assessment/Plan Hospital Course I spoke with Dr. Vera, PHOTOGRAPH EDITOR construction mgr today re need for endometrial biopsy, will keep NPO, continue IVF. Assessment/Plan -E. coli ESBL UTI, continue meropenem. -Vaginal bleeding, s/p eval by Dr Quiroga,PHOTOGRAPH EDITOR eval. spoke with Dr. Long 01/08 patient needs to be n.p.o. for endometrial biopsy. Pt is NPO. spoke with Dr Wilcox, unable to do endometrial biopsy today recommendations to call PHOTOGRAPH EDITOR construction mgr tomorrow. -Severe constipation with concern for stroke or pleural colitis and gallbladder distention with dilated common bile duct per CT of the abdomen and pelvis, resolving. Continue patient on bowel regimen. Dr. Devi is following in gastroenterology consultation. MRCP is negative for biliary obstruction or stricture. Bile duct is 3 mm in diameter. 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 -Dysphagia with G-tube, status post swallow evaluation, patient tolerates p.o. diet however dietary intake is less than 50% which makes patient not a candidate for G-tube removal at this point -Bedbound status Further recommendations based on clinical course. Plan of care discussed with Dr. Dominique. Result Diagram: 01/09/19 0501 01/09/19 0501 Exam/Review of Systems Exam Vitals Vital Signs Date Temp Pulse Resp B/P (MAP) Pulse Ox O2 O2 Flow FiO2 Time Delivery Rate 01/10/19 98.5 75 18 146/69 97 Room Air 08:55 (94) Intake and Output 01/09/19 01/09/19 01/10/19 1414:59 22:59 06:59 IntakeIntake Total 50 ml 980 ml 600 ml OutputOutput Total 550 ml 700 ml BalanceBalance -500 ml 280 ml 600 ml Exam Constitutional: alert, non-verbal Respiratory: clear to auscultation Cardiovascular: regular rate and rhythm Gastrointestinal: soft, other (G-tube) Extremities: normal pulses, other (Contracted bilateral lower extremities) Neurological: other (Awake, alert, contracted bilateral lower extremities, right-sided weakness) Skin: nl turgor Medications Medication Current Medications Acetaminophen (Tylenol Tab) 650 mg Q6H PRN PO PAIN LEVEL 1-10/10; Start 01/02/19 at 17:30 Docusate Sodium (Colace) 100 mg BID PO Last administered on 01/09/19 22:11; Admin Dose 100 MG; Start 01/02/19 at 21:00 Famotidine (Pepcid) 20 mg DAILY PO Last administered on 01/08/19 09:28; Admin Dose 20 MG; Start 01/03/19 at 09:00 Tetrahydrozoline HCl (Geneyes Oph) 1 drop Q6H PRN BOTH EYES RED EYES Last administered on 01/07/19 22:28; Admin Dose 1 DROP; Start 01/02/19 at 17:30 Ondansetron HCl (Zofran Inj) 4 mg Q6H PRN IV NAUSEA/VOMITING; Start 01/02/19 at 17:30 Acetaminophen/ Hydrocodone Bitart ([place] (5/325)) 1 tab Q6H PRN PO .MOD PAIN 4- 6 Last administered on 01/06/19 01:29; Admin Dose 1 TAB; Start 01/02/19 at 17:30 Docusate Sodium (Colace) 100 mg Q12H PRN PO .CONSTIPATION; Start 01/02/19 at 17:30 Magnesium Hydroxide (Milk Of Mag) 30 ml DAILY PRN PO .CONSTIPATION Last administered on 01/04/19 02:31; Admin Dose 30 ML; Start 01/02/19 at 17:30 Sodium Chloride (Betty-128 5%) 1 drop QHS BOTH EYES Last administered on 01/10/19 04:09; Admin Dose 1 DROP; Start 01/02/19 at 21:00 Cefepime HCl 50 ml @ 100 mls/hr Q12 IVPB Last administered on 01/10/19 09:33; Admin Dose 100 MLS/HR; Start 01/04/19 at 09:00; Stop 01/11/19 at 06:09 Simethicone (Mylicon) 80 mg Q6H PRN PO DISTENSION/GAS/BLOATING Last administered on 01/06/19at 12:35; Admin Dose 80 MG; Start 01/06/19 at 12:30 Lubiprostone (Amitiza) 24 mcg BID PO Last administered on 01/09/19at 22:11; Admin Dose 24 MCG; Start 01/06/19 at 21:00 Polyethylene Glycol (Miralax) 17 gm DAILY GTB Last administered on 01/08/19 09:27; Admin Dose 17 GM; Start 01/07/19 at 09:00 Dextrose/Sodium Chloride 1,000 ml @ 60 mls/hr [id number] IV Last administered on 01/10/19 09:34; Admin Dose 60 MLS/HR; Start 01/09/19 at 00:00 KELSEY PROCTOR January 10, 2019 17:20
--- NOTE | 2019-01-10 18:28 | QN ---
Documentation Comment I was asked by nurse practitioner to come and evaluate the patient for possible endometrial biopsy. Patient had been n.p.o. Biopsy could not be performed per report from nurse practitioner, patient had been in the nursing facility and started having vaginal bleeding. Per review of the chart and daughter is a statement patient had been menopause for the last 2 years. Patient had not been on any hormonal medication when she was seen in the emergency room she had a Suarez catheter that was draining clear yellow urine.. Patient since admission did not have any vaginal bleeding. Pelvic ultrasound performed however the evaluation was limited due to patient's position and inability to do a good adequate exam and to visualize endometrial stripe. Attended to the patient bedside to evaluate the patient Patient was poor historian. I could not communicate with the patient to consent regarding endometrial biopsy, I have informed the nurse to inform OB hospitali st when the family are at bedside and to contact the laborist to discuss about risk and benefits of the procedure with the family and power of regulatory attorney for consenting for above procedure. I also called patient's daughter and left a message [facility] is available for interviewing and for consenting processl I have not heard yet from the family my shift has been ending and I will assigned this case to upcoming OB hospitalist Dr. Quiroga. For follow-up HORACE LESLIE MD January 10, 2019 18:28
[2019-01-10 20:40] VITALS: BP 117/71; PULSE 77; RESP 20
[2019-01-11 02:40] VITALS: BP 119/69; PULSE 78; RESP 18
[2019-01-11] MEDS: DEXTROSE 5%-0.45% NACL 1,000 ML IV SCH ×2 (06:00→06:42)
[2019-01-11 07:58] VITALS: BP 152/70; PULSE 58; RESP 18
[2019-01-11] MEDS: FAMOTIDINE 20 MG TAB PO SCH (10:25)
[2019-01-11] MEDS: POLYETHYLENE GLYCOL 17 GM PACKET GTB SCH (10:25)
[2019-01-11] MEDS: LUBIPROSTONE 24 MCG CAP PO SCH ×2 (10:25→21:00)
[2019-01-11] MEDS: DOCUSATE SODIUM 100 MG CAP PO SCH ×2 (10:26→21:00)
--- NOTE | 2019-01-11 11:36 | CONS ---
Assessment/Plan Assessment/Plan Hospital Course (Demo Recall) No acute events overnight patient is lying comfortably in bed no fevers Microbiology: Urine culture on admission grew E. coli ESBL repeat culture negative Indwelling's: PEG Antimicrobials: none PHYSICAL EXAMINATION: GENERAL: This is a chronically ill-appearing, middle-aged woman who is awake, somewhat communicative. The patient is in no distress. HEENT: Head is atraumatic, normocephalic. Sclerae are anicteric. Buccal mucosa is dry. NECK: Supple. CHEST: Rise symmetrical. Breath sounds are clear, diminished to bases. HEART: S1, S2. ABDOMEN: Soft. Bowel tones are present. EXTREMITIES: Wasted. Assessment: 1. S/p E. coli ESBL UTI 2. Vaginal bleeding on admission 3. History of intracerebral hemorrhage with aneurysmal rupture 4. Hypertension Plan: Patient remains stable, repeat urine culture negative, pt completed antibiotics Consultation Date/Type/Reason Admit Date/Time January 02, 2019 at 12:45 Initial Consult Date 01/04/19 Type of Consult id Requesting Provider: KELSEY PROCTOR Date/Time of Note DATE: 01/11/19 TIME: 11:36 Exam/Review of Systems Exam Vitals Vital Signs Date Temp Pulse Resp B/P (MAP) Pulse Ox O2 O2 Flow FiO2 Time Delivery Rate 01/11/19 97.6 58 18 152/70 99 Room Air 07:58 (97) Intake and Output 01/10/19 01/10/19 01/11/19 1515:00 23:00 07:00 IntakeIntake Total 450 ml 550 ml 500 ml OutputOutput Total 500 ml 1200 ml BalanceBalance 450 ml 50 ml -700 ml Results Result Diagram: 01/09/19 0501 01/09/19 0501 Medications Medication Current Medications Acetaminophen (Tylenol Tab) 650 mg Q6H PRN PO PAIN LEVEL 1-10/10; Start 01/02/19 at 17:30 Docusate Sodium (Colace) 100 mg BID PO Last administered on 01/11/19at 10:26; Admin Dose 100 MG; Start 01/02/19 at 21:00 Famotidine (Pepcid) 20 mg DAILY PO Last administered on 01/11/19at 10:25; Admin Dose 20 MG; Start 01/03/19 at 09:00 Tetrahydrozoline HCl (Geneyes Oph) 1 drop Q6H PRN BOTH EYES RED EYES Last admin istered on 01/07/19 22:28; Admin Dose 1 DROP; Start 01/02/19 at 17:30 Ondansetron HCl (Zofran Inj) 4 mg Q6H PRN IV NAUSEA/VOMITING; Start 01/02/19 at 17:30 Acetaminophen/ Hydrocodone Bitart ([place] (5/325)) 1 tab Q6H PRN PO .MOD PAIN 4- 6 Last administered on 01/06/19 01:29; Admin Dose 1 TAB; Start 01/02/19 at 17:30 Docusate Sodium (Colace) 100 mg Q12H PRN PO .CONSTIPATION; Start 01/02/19 at 17 :30 Magnesium Hydroxide (Milk Of Mag) 30 ml DAILY PRN PO .CONSTIPATION Last administered on 01/04/19 02:31; Admin Dose 30 ML; Start 01/02/19 at 17:30 Sodium Chloride (Betty-128 5%) 1 drop QHS BOTH EYES Last administered on 01/10/19 20:46; Admin Dose 1 DROP; Start 01/02/19 at 21:00 Simethicone (Mylicon) 80 mg Q6H PRN PO DISTENSION/GAS/BLOATING Last administered on 01/06/19 12:35; Admin Dose 80 MG; Start 01/06/19 at 12:30 Lubiprostone (Amitiza) 24 mcg BID PO Last administered on 01/11/19 10:25; Admin Dose 24 MCG; Start 01/06/19 at 21:00 Polyethylene Glycol (Miralax) 17 gm DAILY GTB Last administered on 01/11/19 10:25; Admin Dose 17 GM; Start 01/07/19 at 09:00 Dextrose/Sodium Chloride 1,000 ml @ 60 mls/hr [id number] IV Last administered on 01/11/19 06:42; Admin Dose 60 MLS/HR; Start 01/09/19 at 00:00 KEYONNA KING NP January 11, 2019 11:36
--- NOTE | 2019-01-11 12:59 | PN ---
DATE: 01/11/2019 SUBJECTIVE: Patient is breathing comfortably on room air. No reported fever or chills, no reported vaginal bleed. Patient remains awake and responsive. PHYSICAL EXAMINATION: GENERAL: The patient awake, alert. VITAL SIGNS: Temperature 97.6, pulse 58, respiration 18, blood pressure 152/70, O2 98 on room air. HEENT: No eye discharge or redness. Nose and ears normal externally. NECK: No mass. CHEST: Fairly clear. CARDIOVASCULAR: S1, S2 normal. ABDOMEN: Soft, nondistended, nontender. EXTREMITIES: No edema. NEUROLOGIC: The patient is awake, alert. IMPRESSION: 1. Urinary tract infection for ESBL UTI. The patient completed IV antibiotic course yesterday. 2. Vaginal bleed. Dr. Quiroga is still unable to schedule her for endometrial biopsy. I requested the nurse to reach out to her again. The patient, however, is being kept n.p.o. for potential surgical i ntervention. 3. Cerebrovascular accident. 4. Distended gallbladder. MRCP negative for biliary obstruction or stricture. The patient is being followed by Dr. Devi from GI standpoint. Further recommendation depends on hospital course. DISPOSITION: After ASSISTANT COMMISSIONER workup. Dictated By: SPIKE JEFFRIES/CLARE Conf#: [id number] DID#: [id number]
--- NOTE | 2019-01-11 15:20 | CONS ---
Assessment/Plan Assessment/Plan Assessment/Plan (Daily) Assessment/Plan (Daily) Hospital Course (Demo Recall) 48 yo female 1. Dilated gallbladder and bile duct with normal LFT -MRCP is negative for biliary obstruction or stricture. Bile duct is 3 mm in diameter. 2. Fecal impaction with probable stercoral ulcer. 3. Vaginal bleeding from leiomyomatous uterus. 4. Quadriplegia. 5. Cerebrovascular accident. 6. Hyperlipidemia. 7. Dysphagia, status post G-tube placement. Patient passed a swallow study and is able to eat through mouth Plan. Bowel regimen Continue present care Pt passed second swallow evaluation with no aspiration. Aspiration precautions G-tube will be removed when patient eats 100% and able to take all the medication through the mouth Consultation Date/Type/Reason Admit Date/Time January 02, 2019 at 12:45 Initial Consult Date 01/04/19 Requesting Provider: KELSEY PROCTOR Date/Time of Note DATE: 01/11/19 TIME: 15:20 24 HR Interval Summary Free Text/Dictation No abdominal pain Family and patient wants G-tube to be removed Constitutional: no complaints, improved Exam/Review of Systems Exam Vitals Vital Signs Date Temp Pulse Resp B/P (MAP) Pulse Ox O2 O2 Flow FiO2 Time Delivery Rate 01/11/19 97.6 58 18 152/70 99 Room Air 07:58 (97) Intake and Output 01/10/19 01/10/19 01/11/19 1515:00 23:00 07:00 IntakeIntake Total 450 ml 550 ml 500 ml OutputOutput Total 500 ml 1200 ml BalanceBalance 450 ml 50 ml -700 ml Constitutional: alert, oriented, well developed Psych: no complaints, nl mood/affect Head: normocephalic, atraumatic Eyes: nl conjunctiva, EOMI, nl lids, nl sclera, PERRL ENMT: nl external ears & nose, nl lips & teeth, nl nasal mucosa & septum Neck: supple, non-tender Respiratory: clear to auscultation, normal air movement Cardiovascular: regular rate and rhythm, nl pulses Gastrointestinal: soft, nl liver, spleen, non-tender Musculoskeletal: nl extremities to inspection, nl gait and stance Extremities: normal pulses Neurological: JANITORIAL ACCOUNT MANAGER II-XII intact, nl mental status, nl speech, nl strength Skin: nl turgor; No rash or lesions Lymph: nl lymph nodes Results Result Diagram: 01/09/19 0501 01/09/19 0501 Medications Medication Current Medications Acetaminophen (Tylenol Tab) 650 mg Q6H PRN PO PAIN LEVEL 1-10/10; Start 01/02/19 at 17:30 Docusate Sodium (Colace) 100 mg BID PO Last administered on 01/11/19 10:26; Admin Dose 100 MG; Start 01/02/19 at 21:00 Famotidine (Pepcid) 20 mg DAILY PO Last administered on 01/11/19 10:25; Admin Dose 20 MG; Start 01/03/19 at 09:00 Tetrahydrozoline HCl (Geneyes Oph) 1 drop Q6H PRN BOTH EYES RED EYES Last administered on 01/07/19 22:28; Admin Dose 1 DROP; Start 01/02/19 at 17:30 Ondansetron HCl (Zofran Inj) 4 mg Q6H PRN IV NAUSEA/VOMITING; Start 01/02/19 at 17:30 Acetaminophen/ Hydrocodone Bitart ([place] (5/325)) 1 tab Q6H PRN PO .MOD PAIN 4- 6 Last administered on 01/06/19 01:29; Admin Dose 1 TAB; Start 01/02/19 at 17:30 Docusate Sodium (Colace) 100 mg Q12H PRN PO .CONSTIPATION; Start 01/02/19 at 17:30 Magnesium Hydroxide (Milk Of Mag) 30 ml DAILY PRN PO .CONSTIPATION Last administered on 01/04/19 02:31; Admin Dose 30 ML; Start 01/02/19 at 17:30 Sodium Chloride (Betty-128 5%) 1 drop QHS BOTH EYES Last administered on 01/10/19 20:46; Admin Dose 1 DROP; Start 01/02/19 at 21:00 Simethicone (Mylicon) 80 mg Q6H PRN PO DISTENSION/GAS/BLOATING Last administered on 01/06/19at 12:35; Admin Dose 80 MG; Start 01/06/19 at 12:30 Lubiprostone (Amitiza) 24 mcg BID PO Last administered on 01/11/19 10:25; Admin Dose 24 MCG; Start 01/06/19 at 21:00 Polyethylene Glycol (Miralax) 17 gm DAILY GTB Last administered on 01/11/19at 10:25; Admin Dose 17 GM; Start 01/07/19 at 09:00 Dextrose/Sodium Chloride 1,000 ml @ 60 mls/hr [id number] IV Last administered on 01/11/19at 06:42; Admin Dose 60 MLS/HR; Start 01/09/19 at 00:00 MONTRELL FAULKNER MD January 11, 2019 15:20
--- NOTE | 2019-01-11 18:00 | QN ---
Documentation Comment called from 5w regarding consent for EMB when patient 's family member comes,which was around noon time according to RN she called family member and she will inform me when she arrives. but no call from 5w up to now patient has been NPO MERLYN PAULINO MD January 11, 2019 18:00
[2019-01-11 19:45] VITALS: BP 143/76; PULSE 72; RESP 20
[2019-01-11] MEDS: SODIUM CHLORIDE 5% 15ML OPH BOTH EYES SCH (21:35)
[2019-01-12 02:15] VITALS: BP 129/61; PULSE 62; RESP 20
[2019-01-12 07:16] VITALS: BP 125/63; PULSE 61; RESP 18
[2019-01-12] MEDS: FAMOTIDINE 20 MG TAB PO SCH (08:37)
[2019-01-12] MEDS: POLYETHYLENE GLYCOL 17 GM PACKET GTB SCH (08:37)
[2019-01-12] MEDS: DOCUSATE SODIUM 100 MG CAP PO SCH ×2 (08:37→20:43)
[2019-01-12] MEDS: LUBIPROSTONE 24 MCG CAP PO SCH ×2 (08:37→20:43)
[2019-01-12 13:53] VITALS: BP 126/73; PULSE 81; RESP 18
--- NOTE | 2019-01-12 17:18 | PN ---
Date/Time of Note Date/Time of Note DATE: 01/12/19 TIME: 17:17 Assessment/Plan VTE Prophylaxis Risk score (from Nsg)>0 risk: 3 SCD applied (from Ns): Yes SCD contraindicated: other Pharmacological prophylaxis: other Lines/Catheters IV Catheter Type (from Nrsg): Peripheral IV Urinary Cath still in place: No Assessment/Plan Assessment/Plan 1. Urinary tract infection for ESBL UTI. - sp IV antibiotic course 2. Vaginal bleed. - per tobacco drier operator - Dr. Quiroga is still unable to schedule her for endometrial biopsy. 3. Cerebrovascular accident- no acute issues. 4. Distended gallbladder. - per GI- Dr. Devi - MRCP negative for biliary obstruction or stricture. 5. SCD for DVT prophylaxis Further recommendation depends on hospital course. Patient seen in collaboration with Dr Dominique DISPOSITION: After ALPINE PATROLLER workup. Result Diagram: 01/09/19 0501 01/09/19 0501 Subjective 24 Hr Interval Summary Free Text/Dictation -nad - afebrile - no vaginal bleeding reported - SNF pending- no bed available - no events reported overnight dw staff Exam/Review of Systems Exam Vitals Vital Signs Date Temp Pulse Resp B/P (MAP) Pulse Ox O2 O2 Flow FiO2 Time Delivery Rate 01/12/19 98.0 81 18 126/73 99 Room Air 13:53 (90) Intake and Output 01/11/19 01/11/19 01/12/19 1515:00 23:00 07:00 IntakeIntake Total 720 ml OutputOutput Total 650 ml 500 ml BalanceBalance 70 ml -500 ml Constitutional: alert Psych: nl mood/affect Eyes: nl lids, nl sclera ENMT: nl external ears & nose Neck: supple Respiratory: clear to auscultation Cardiovascular: nl pulses, other Gastrointestinal: soft, non-tender Musculoskeletal: muscle weakness Extremities: normal pulses Medications Medication Current Medications Acetaminophen (Tylenol Tab) 650 mg Q6H PRN PO PAIN LEVEL 1-10/10; Start 01/02/19 at 17:30 Docusate Sodium (Colace) 100 mg BID PO Last administered on 01/12/19at 08:37; Admin Dose 100 MG; Start 01/02/19 at 21:00 Famotidine (Pepcid) 20 mg DAILY PO Last administered on 01/12/19at 08:37; Admin Dose 20 MG; Start 01/03/19 at 09:00 Tetrahydrozoline HCl (Geneyes Oph) 1 drop Q6H PRN BOTH EYES RED EYES Last administered on 01/07/19 22:28; Admin Dose 1 DROP; Start 01/02/19 at 17:30 Ondansetron HCl (Zofran Inj) 4 mg Q6H PRN IV NAUSEA/VOMITING; Start 01/02/19 at 17:30 Acetaminophen/ Hydrocodone Bitart ([place] (5/325)) 1 tab Q6H PRN PO .MOD PAIN 4- 6 Last administered on 01/06/19 01:29; Admin Dose 1 TAB; Start 01/02/19 at 17:30 Docusate Sodium (Colace) 100 mg Q12H PRN PO .CONSTIPATION; Start 01/02/19 at 17:30 Magnesium Hydroxide (Milk Of Mag) 30 ml DAILY PRN PO .CONSTIPATION Last administered on 01/04/19 02:31; Admin Dose 30 ML; Start 01/02/19 at 17:30 Sodium Chloride (Betty-128 5%) 1 drop QHS BOTH EYES Last administered on 01/11/19 21:35; Admin Dose 1 DROP; Start 01/02/19 at 21:00 Simethicone (Mylicon) 80 mg Q6H PRN PO DISTENSION/GAS/BLOATING Last administered on 01/06/19 12:35; Admin Dose 80 MG; Start 01/06/19 at 12:30 Lubiprostone (Amitiza) 24 mcg BID PO Last administered on 01/12/19 08:37; Admin Dose 24 MCG; Start 01/06/19 at 21:00 Polyethylene Glycol (Miralax) 17 gm DAILY GTB Last administered on 01/12/19 08:37; Admin Dose 17 GM; Start 01/07/19 at 09:00 VALENCIA PEREZ January 12, 2019 17:18
[2019-01-12 19:25] VITALS: BP 140/75; PULSE 78; RESP 18
[2019-01-12] MEDS: SODIUM CHLORIDE 5% 15ML OPH BOTH EYES SCH (20:43)
[2019-01-13 02:01] VITALS: BP 121/70; PULSE 64; RESP 18
--- NOTE | 2019-01-13 06:14 | PN ---
Date/Time of Note Date/Time of Note DATE: 01/13/19 TIME: 06:13 Assessment/Plan VTE Prophylaxis Risk score (from Ns)>0 risk: 4 SCD applied (from Ns): Yes SCD contraindicated: other Pharmacological prophylaxis: other Pharm contraindication: other Lines/Catheters IV Catheter Type (from Nrsg): Peripheral IV Urinary Cath still in place: No Assessment/Plan Assessment/Plan 1. Urinary tract infection for ESBL UTI. The patient completed IV antibiotic course yesterday. 2. Vaginal bleed. Dr. Quiroga is still unable to schedule her for endometrial biopsy. 3. Cerebrovascular accident. 4. Distended gallbladder. MRCP negative for biliary obstruction or stricture. The patient is being followed by Dr. Devi from GI standpoint. Further recommendation depends on hospital course. Disposition- to SNF when bed is available. Patient seen in collaboration with Dr Dominique. staff Result Diagram: 01/09/19 0501 01/09/19 0501 Subjective 24 Hr Interval Summary Free Text/Dictation -nad - no vaginal bleeding reported by staff - Placement pending- no bed available. Constitutional: requiring O2 Exam/Review of Systems Exam Vitals Vital Signs Date Temp Pulse Resp B/P (MAP) Pulse Ox O2 O2 Flow FiO2 Time Delivery Rate 01/13/19 97.7 64 18 121/70 96 02:01 (87) 01/12/19 Room Air 13:53 Intake and Output 01/12/19 01/12/19 01/13/19 1414:59 22:59 06:59 IntakeIntake Total 50 ml BalanceBalance 50 ml Constitutional: alert, frail Psych: nl mood/affect Eyes: nl lids, nl sclera ENMT: nl external ears & nose Neck: non-tender Respiratory: clear to auscultation Cardiovascular: nl pulses, other (s1s2) Gastrointestinal: soft, non-tender Musculoskeletal: muscle weakness Extremities: normal pulses Neurological: other (alert) Lymph: nontender Medications Medication Current Medications Acetaminophen (Tylenol Tab) 650 mg Q6H PRN PO PAIN LEVEL 1-10/10; Start 01/02/19 at 17:30 Docusate Sodium (Colace) 100 mg BID PO Last administered on 01/12/19at 20:43; Admin Dose 100 MG; Start 01/02/19 at 21:00 Famotidine (Pepcid) 20 mg DAILY PO Last administered on 01/12/19 08:37; Admin Dose 20 MG; Start 01/03/19 at 09:00 Tetrahydrozoline HCl (Geneyes Oph) 1 drop Q6H PRN BOTH EYES RED EYES Last administered on 01/07/19 22:28; Admin Dose 1 DROP; Start 01/02/19 at 17:30 Ondansetron HCl (Zofran Inj) 4 mg Q6H PRN IV NAUSEA/VOMITING; Start 01/02/19 at 17:30 Acetaminophen/ Hydrocodone Bitart ([place] (5/325)) 1 tab Q6H PRN PO .MOD PAIN 4- 6 Last administered on 01/06/19 01:29; Admin Dose 1 TAB; Start 01/02/19 at 17:30 Docusate Sodium (Colace) 100 mg Q12H PRN PO .CONSTIPATION; Start 01/02/19 at 17:30 Magnesium Hydroxide (Milk Of Mag) 30 ml DAILY PRN PO .CONSTIPATION Last administered on 01/04/19 02:31; Admin Dose 30 ML; Start 01/02/19 at 17:30 Sodium Chloride (Betty-128 5%) 1 drop QHS BOTH EYES Last administered on 01/12/19 20:43; Admin Dose 1 DROP; Start 01/02/19 at 21:00 Simethicone (Mylicon) 80 mg Q6H PRN PO DISTENSION/GAS/BLOATING Last administered on 01/06/19 12:35; Admin Dose 80 MG; Start 01/06/19 at 12:30 Lubiprostone (Amitiza) 24 mcg BID PO Last administered on 01/12/19 20:43; Admin Dose 24 MCG; Start 01/06/19 at 21:00 Polyethylene Glycol (Miralax) 17 gm DAILY GTB Last administered on 01/12/19 08:37; Admin Dose 17 GM; Start 01/07/19 at 09:00 VALENCIA PEREZ January 13, 2019 06:14
[2019-01-13 08:11] VITALS: BP 129/70; PULSE 63; RESP 14
[2019-01-13] MEDS: POLYETHYLENE GLYCOL 17 GM PACKET GTB SCH (08:19)
[2019-01-13] MEDS: FAMOTIDINE 20 MG TAB PO SCH (08:19)
[2019-01-13] MEDS: LUBIPROSTONE 24 MCG CAP PO SCH (08:19)
[2019-01-13] MEDS: DOCUSATE SODIUM 100 MG CAP PO SCH (08:19)
--- NOTE | 2019-03-19 22:48 | DS ---
Date/Time of Note Date/Time of Note DATE: 03/19/19 TIME: 22:36 Discharge Summary Admission/Discharge Info Admit Date/Time January 02, 2019 at 12:45 Discharge Date/Time January 13, 2019 at 15:49 Discharge Diagnosis 1. Urinary tract infection for ESBL UTI. The patient completed IV antibiotic course yesterday. 2. Vaginal bleed - sp evaluation by Dr. Quiroga 3. Cerebrovascular accident. 4. Distended gallbladder. MRCP negative for biliary obstruction or stricture. 5. Dysphagia- sp GT placement 6. Bed bound Patient seen in collaboration with Dr Dominique. staff Patient Condition: Stable Hospital Course The patient is a 48-year-old female , a SNF resident with history of intracerebral hemorrhage with aneurysmal rupture'; status post clipping of the right supraclinoid; ICA aneurysm, history of hypertension and lupus; bedbound; sp G-tube placement. Patient was admitted for vaginal bleeding.Patient was seen by Dr Quiroga. Constitutional: nad, alert, frail, vss Psych: nl mood/affect Eyes: nl lids, nl sclera ENMT: nl external ears & nose Neck: non-tender Respiratory: clear to auscultation Cardiovascular: nl pulses, other (s1s2) Gastrointestinal: soft, non-tender Musculoskeletal: muscle weakness Extremities: normal pulses Neurological: other (alert) Lymph: nontender Patient Got stable and was discharged in a stable condition. Home Meds Reported Medications Acetaminophen* (Tylenol*) 325 Mg Tablet, 650 MG PO Q6H PRN for PAIN LEVEL 1- 10/10, TAB AND FEVER>100.4F 01/02/19 Tetrahydrozoline Hcl* (Visine*) 0.05% - 15 Ml Drops, 1 DROP BOTH EYES Q6H PRN for RED EYES, #1 EA 01/02/19 Protein Supplement (Promod) 946 Ml Liquid, 30 ML PO DAILY 01/02/19 Olopatadine* (Patanol* Ophth) 0.1% - 5 Ml Drops, 1 DROP BOTH EYES TID, EA 01/02/19 Nitroglycerin* (Nitroglycerin* SL) 0.4 Mg Tab.subl, 0.4 MG SL Q5MIN PRN for CHEST PAIN, BOTTLE 01/02/19 Sodium Chloride* (Betty-128*) 2%-15ml Dropper Opht, 1 DROP BOTH EYES QHS, EA 01/02/19 Multivitamin with Minerals (Multivitamins with Minerals) 1 Each Tablet, 1 EACH PO DAILY, TAB 01/02/19 Famotidine* (Famotidine*) 20 Mg Tablet, 20 MG PO DAILY, #30 TAB 01/02/19 Docusate Sodium* (Colace*) 100 Mg Capsule, 100 MG PO BID, #60 CAP 01/02/19 Aspirin* (Aspirin* Chew) 81 Mg Tab.chew, 81 MG PO DAILY, TAB.CHEW 01/02/19 Primary Care Provider MD ANA Vyas RANBIR Mar 19, 2019 22:48
== END 2019-01-13 15:49 | DRG 760 ==
LOC: E/R 09:55 → MS1 12:45
PROVIDERS: ADMIT Internal Medicine; ATTEND Internal Medicine
DX: N93.9 Abnormal uterine and vaginal bleeding, unspecified (principal); R53.2 Functional quadriplegia; N39.0 Urinary tract infection, site not specified; I69.351 Hemiplegia and hemiparesis following cerebral infarction affecting right dominant side; F09 Unspecified mental disorder due to known physiological condition; K56.41 Fecal impaction; E86.0 Dehydration; I10 Essential (primary) hypertension; R13.10 Dysphagia, unspecified; E78.5 Hyperlipidemia, unspecified; M24.50 Contracture, unspecified joint; M32.9 Systemic lupus erythematosus, unspecified; B96.29 Other Escherichia coli [E. coli] as the cause of diseases classified elsewhere; Z74.01 Bed confinement status; Z87.891 Personal history of nicotine dependence
CPT/HCPCS: 36415; 74176; 74181; 74230; 76830; 76856; 80048; 80053; 81001; 83690; 83735; 85025; 85610; 85730; 87081; 87086; 92526; 92610; 92611; 96365; J0692; J0696; J2270; J2405; J7040; J7042